=== PATIENT | male | born 1955 | race Caucasian/White ===

== ENCOUNTER 2018-11-19 05:36 | Inpatient (IN) ==
[2018-11-19] MEDS ORDERED: ONDANSETRON 4 MG/2 ML VIAL ONE ×2 (05:52→06:05)
[2018-11-19] MEDS ORDERED: MORPHINE 4 MG/1 ML VIAL ONE (05:53)
[2018-11-19] MEDS ORDERED: ENOXAPARIN 120 MG/0.8 ML SYRINGE SUBCUT ONE (05:55)
[2018-11-19] MEDS ORDERED: NITROGLYCERIN 2% OINT 1 INCH/GM PACK TOP ONE (05:56)
[2018-11-19] MEDS ORDERED: ENOXAPARIN 100 MG/ML SYRINGE SUBCUT STA (06:03)
[2018-11-19] MEDS ORDERED: MORPHINE 4 MG/1 ML VIAL IV STA (06:03)
[2018-11-19] MEDS ORDERED: NITROGLYCERIN 2% OINT 1 INCH/GM PACK TOP STA (06:03)
[2018-11-19] MEDS ORDERED: ONDANSETRON 4 MG/2 ML VIAL IV STA (06:03)
[2018-11-19] MEDS ORDERED: ASPIRIN 325 MG TABLET PO STA (06:03)
[2018-11-19 06:23] LABS: Basophils # 0.1 10*3/uL (0.0-0.2); Basophils % 0.4 % (0.0-0.8); Eosinophils # 0.1 10*3/uL (0.0-0.87); Eosinophils % 0.5 % (0.00-10.9); Hematocrit 51.5 VOL% (42.0-52.0); Hemoglobin 17.3 GM/DL (14.0-18.0); Immature Granulocytes % 0.5 %; Immature Granulocytes Absolute 0.06 #; Lymphocytes # 1.8 10*3/uL (1.4-4.0); Lymphocytes % 14.1 % (21.2-54.2); Mean Corpuscular HGB Conc 33.6 GM/DL (32-36); Mean Corpuscular Volume 89.4 FL (87-102); Monocytes % 7.5 % (1.7-12.7); Platelet Count 218 T/CUMM (130-400); Red Blood Count 5.76 MC/CUMM (3.8-5.5); Red Cell Distribution Width 12.8 % (9.3-17.3); White Blood Count 12.7 T/CUMM (4-12)
[2018-11-19 06:25] LABS: PT Patient Result 10.8 SECS
[2018-11-19 06:35] LABS: Albumin 3.4 G/DL (3.4-5.0); Bilirubin,Total 0.7 MG/DL (0.2-1.0); Calcium 8.8 MG/DL (8.5-10.1); Osmolality,Calculated 285.7 MOS/KG (273-304); Total Protein 7.6 G/DL (6.4-8.3)
[2018-11-19] MEDS ORDERED: VERAPAMIL 5 MG/2 ML VIAL ONE ×2 (06:38→06:52)
[2018-11-19] MEDS ORDERED: NITROGLYCERIN DRIP 50 MG/250 ML BOTTLE IV ONE (06:38)
[2018-11-19] MEDS ORDERED: HYDROmorphone 2 MG/1 ML VIAL ONE (06:50)
[2018-11-19] MEDS ORDERED: MIDAZOLAM 2 MG/2 ML VIAL ONE ×2 (06:50→07:28)
[2018-11-19] MEDS ORDERED: NITROGLYCERIN SL 0.4 MG TABLET SL PRN (08:12)
[2018-11-19] MEDS ORDERED: CLOPIDOGREL 300 MG TABLET ONE (08:29)
[2018-11-19] MEDS ORDERED: LOPERAMIDE 2 MG CAPSULE PO PRN (11:23)
[2018-11-19] MEDS ORDERED: SODIUM PHOSPHATE ENEMA 133 ML BOTTLE RECTAL PRN (11:23)
[2018-11-19] MEDS ORDERED: ACETAMINOPHEN 500 MG TABLET PO PRN (11:23)
[2018-11-19] MEDS ORDERED: MAGNESIUM HYDROXIDE SUSP 30 ML UDCUP PO PRN (11:23)
[2018-11-19] MEDS ORDERED: hydrALAZINE 20 MG/1 ML VIAL IV PRN (11:28)
[2018-11-19] MEDS ORDERED: METOPROLOL SUCCINATE XL 25 MG TABLET PO SCH (11:30)
[2018-11-19] MEDS ORDERED: ERGOCALCIFEROL 50,000 UNIT CAPSULE PO SCH (11:30)
[2018-11-19] MEDS ORDERED: FUROSEMIDE 40 MG/4 ML VIAL IV ONE (11:34)
[2018-11-19] MEDS: INSULIN LISPRO 100 UNIT/ML SUBCUT SCH ×3 (12:15→20:56)
[2018-11-19 12:30] LABS: Risk Ratio 3.02; VLDL CHOLESTEROL 43.6 MG/DL
[2018-11-19] MEDS ORDERED: MORPHINE 4 MG/1 ML VIAL IV PRN (14:00)
[2018-11-19] MEDS ORDERED: fentaNYL 50 MCG/HR PATCH TRANSDERM SCH (14:19)
[2018-11-19] MEDS: NICOTINE 14 MG/24 HR PATCH TRANSDERM SCH (14:35)
[2018-11-19] MEDS: PREGABALIN 100 MG CAPSULE PO SCH ×2 (14:35→20:57)
[2018-11-19] MEDS: fentaNYL 50 MCG/HR PATCH TRANSDERM SCH (14:35)
[2018-11-19] MEDS: SPIRONOLACTONE 25 MG TABLET PO SCH (18:25)
[2018-11-19] MEDS: ENOXAPARIN 120 MG/0.8 ML SYRINGE SUBCUT SCH (18:25)
[2018-11-19] MEDS: INSULIN GLARGINE 100 UNIT/ML SUBCUT SCH (20:56)
[2018-11-19] MEDS: DOCUSATE SODIUM 100 MG CAPSULE PO SCH (20:56)
[2018-11-19] MEDS: LACTULOSE 20 GM/30 ML UDCUP PO SCH (20:56)
[2018-11-19] MEDS: PANTOPRAZOLE 20 MG TABLET PO SCH (20:57)
[2018-11-19] MEDS: ATORVASTATIN 10 MG TABLET PO SCH (20:57)
[2018-11-19] MEDS ORDERED: LOSARTAN 25 MG TABLET PO SCH (21:00)
[2018-11-20 05:59] LABS: Basophils # 0.1 10*3/uL (0.0-0.2); Basophils % 0.4 % (0.0-0.8); Eosinophils # 0.1 10*3/uL (0.0-0.87); Eosinophils % 0.5 % (0.00-10.9); Hematocrit 48.6 VOL% (42.0-52.0); Immature Granulocytes % 0.4 %; Immature Granulocytes Absolute 0.05 #; Lymphocytes % 16.9 % (21.2-54.2); Mean Corpuscular HGB Conc 32.9 GM/DL (32-36); Mean Corpuscular Volume 90.2 FL (87-102); Mean Platelet Volume 12.2 FL (9.6-12.0); Monocytes % 10.9 % (1.7-12.7); Neutrophils % 70.9 % (38.7-73.9); Platelet Count 198 T/CUMM (130-400); Red Blood Count 5.39 MC/CUMM (3.8-5.5); Red Cell Distribution Width 12.8 % (9.3-17.3); White Blood Count 11.9 T/CUMM (4-12)
[2018-11-20 06:15] LABS: Calcium 8.4 MG/DL (8.5-10.1); Osmolality,Calculated 277.5 MOS/KG (273-304)
[2018-11-20] MEDS: ENOXAPARIN 120 MG/0.8 ML SYRINGE SUBCUT SCH (06:39)
[2018-11-20] MEDS ORDERED: FUROSEMIDE 40 MG/4 ML VIAL IV ONE (08:25)
[2018-11-20] MEDS: INSULIN LISPRO 100 UNIT/ML SUBCUT SCH ×5 (08:27→22:26)
[2018-11-20] MEDS ORDERED: amLODIPine 10 MG TABLET PO SCH (09:00)
[2018-11-20] MEDS: NICOTINE 14 MG/24 HR PATCH TRANSDERM SCH (09:28)
[2018-11-20] MEDS: POLYETHYLENE GLYCOL POWDER 17 GM PACK PO SCH (09:28)
[2018-11-20] MEDS: DOCUSATE SODIUM 100 MG CAPSULE PO SCH ×2 (09:30→22:27)
[2018-11-20] MEDS: PREGABALIN 100 MG CAPSULE PO SCH ×3 (09:30→22:28)
[2018-11-20] MEDS: ASPIRIN EC 81 MG TABLET PO SCH (09:32)
[2018-11-20] MEDS: ARIPiprazole 5 MG TABLET PO SCH (09:32)
[2018-11-20] MEDS: SPIRONOLACTONE 25 MG TABLET PO SCH (09:32)
[2018-11-20] MEDS: VENLAFAXINE XR 75 MG CAPSULE PO SCH (09:32)
[2018-11-20] MEDS: TAMSULOSIN 0.4 MG CAPSULE PO SCH (09:32)
[2018-11-20] MEDS: CLOPIDOGREL 75 MG TABLET PO SCH (09:32)
[2018-11-20] MEDS: POTASSIUM CHLORIDE 20 MEQ TABLET PO PRN ×3 (09:32→13:25)
[2018-11-20] MEDS: PANTOPRAZOLE 20 MG TABLET PO SCH ×2 (09:33→22:28)
[2018-11-20] MEDS ORDERED: DEXTROSE 50% 25 GM/50 ML SYRINGE IV PRN (10:18)
[2018-11-20] MEDS ORDERED: GLUCAGON 1 MG VIAL IM PRN (10:18)
[2018-11-20 10:59] LABS: CKMB % 6.4 %
[2018-11-20 11:01] LABS: Troponin I 32.3 NG/ML (0.00-0.045)
[2018-11-20 11:09] LABS: Apearance,Urine CLOUDY (Clear); Bacteria,Urine Many /HPF (Few); Bilirubin,Urine Negative (Negative); Blood, Urine Moderate mg/dL (Negative); Glucose,Urine (UA) >=500 mg/dL (Negative); Hyaline Casts,Urine 7 /LPF (0-3); Ketones,Urine Negative (Negative); Mucus,Urine Occasional /LPF (Occasional); Nitrite,Urine Negative (Negative); Protein,Urine 30 MG/DL; RBC,Urine 87 /HPF (0-4); Urine Color Yellow (Yellow); Urine Specific Gravity 1.015 (1.001-1.035); Urine Urobilinogen < 2.0 EU/DL (0.2-1.0); WBC,Urine 1459 /HPF (0-6)
[2018-11-20] MEDS: MULTIVITAMIN (CENTRUM) TABLET PO SCH (11:10)
[2018-11-20] MEDS: MICONAZOLE 2% CREAM 57 GM TUBE TOP SCH ×2 (11:10→22:29)
[2018-11-20] MEDS: POLYVINYL ALCOHOL 1.4% OPH SOLN 15 ML BOTTLE BOTH EYES SCH (11:10)
[2018-11-20] MEDS ORDERED: METOPROLOL SUCCINATE XL 25 MG TABLET PO SCH (13:27)
[2018-11-20] MEDS: INSULIN GLARGINE 100 UNIT/ML SUBCUT SCH (22:26)
[2018-11-20] MEDS: LACTULOSE 20 GM/30 ML UDCUP PO SCH (22:27)
[2018-11-20] MEDS: SULFAMETHOX/TRIMETHOPRIM 800-160 MG TABLET PO SCH (22:28)
[2018-11-20] MEDS: ATORVASTATIN 10 MG TABLET PO SCH (22:29)
[2018-11-20] MEDS: METOPROLOL SUCCINATE XL 25 MG TABLET PO SCH (22:31)
[2018-11-21 04:39] LABS: Basophils % 0.3 % (0.0-0.8); Eosinophils # 0.1 10*3/uL (0.0-0.87); Eosinophils % 0.6 % (0.00-10.9); Hematocrit 46.5 VOL% (42.0-52.0); Hemoglobin 15.4 GM/DL (14.0-18.0); Immature Granulocytes % 0.5 %; Immature Granulocytes Absolute 0.06 #; Lymphocytes # 2.5 10*3/uL (1.4-4.0); Lymphocytes % 20.6 % (21.2-54.2); Mean Corpuscular HGB Conc 33.1 GM/DL (32-36); Mean Corpuscular Volume 90.6 FL (87-102); Monocytes % 10.2 % (1.7-12.7); Neutrophils % 67.8 % (38.7-73.9); Platelet Count 194 T/CUMM (130-400); Red Blood Count 5.13 MC/CUMM (3.8-5.5); Red Cell Distribution Width 12.6 % (9.3-17.3)
[2018-11-21 04:48] LABS: Calcium 8.7 MG/DL (8.5-10.1); Osmolality,Calculated 282.2 MOS/KG (273-304)
[2018-11-21] MEDS: VENLAFAXINE XR 75 MG CAPSULE PO SCH (08:50)
[2018-11-21] MEDS: POLYETHYLENE GLYCOL POWDER 17 GM PACK PO SCH (08:50)
[2018-11-21] MEDS: METOPROLOL SUCCINATE XL 25 MG TABLET PO SCH ×2 (08:51→22:31)
[2018-11-21] MEDS: SULFAMETHOX/TRIMETHOPRIM 800-160 MG TABLET PO SCH ×2 (08:51→22:25)
[2018-11-21] MEDS: PREGABALIN 100 MG CAPSULE PO SCH ×3 (08:52→22:31)
[2018-11-21] MEDS: ARIPiprazole 5 MG TABLET PO SCH (08:52)
[2018-11-21] MEDS: MULTIVITAMIN (CENTRUM) TABLET PO SCH (08:52)
[2018-11-21] MEDS: ASPIRIN EC 81 MG TABLET PO SCH (08:53)
[2018-11-21] MEDS: DOCUSATE SODIUM 100 MG CAPSULE PO SCH ×2 (08:53→22:27)
[2018-11-21] MEDS: TAMSULOSIN 0.4 MG CAPSULE PO SCH (08:53)
[2018-11-21] MEDS: MICONAZOLE 2% CREAM 57 GM TUBE TOP SCH ×2 (08:53→22:26)
[2018-11-21] MEDS: CLOPIDOGREL 75 MG TABLET PO SCH (08:53)
[2018-11-21] MEDS: PANTOPRAZOLE 20 MG TABLET PO SCH ×2 (08:53→22:31)
[2018-11-21] MEDS: SPIRONOLACTONE 25 MG TABLET PO SCH (08:53)
[2018-11-21] MEDS: INSULIN LISPRO 100 UNIT/ML SUBCUT SCH ×4 (08:54→22:27)
[2018-11-21] MEDS: NICOTINE 14 MG/24 HR PATCH TRANSDERM SCH (08:54)
[2018-11-21] MEDS: POLYVINYL ALCOHOL 1.4% OPH SOLN 15 ML BOTTLE BOTH EYES SCH (08:54)
[2018-11-21] MEDS ORDERED: LOSARTAN 25 MG TABLET PO SCH (09:00)
[2018-11-21] MEDS ORDERED: LORATADINE 10 MG TABLET PO PRN (14:49)
[2018-11-21] MEDS ORDERED: LACTULOSE 20 GM/30 ML UDCUP PO PRN (14:49)
[2018-11-21] MEDS ORDERED: ATORVASTATIN 80 MG TABLET PO SCH (21:00)
[2018-11-21] MEDS: LOSARTAN 25 MG TABLET PO SCH (22:25)
[2018-11-21] MEDS: LACTULOSE 20 GM/30 ML UDCUP PO SCH (22:26)
[2018-11-21] MEDS: INSULIN GLARGINE 100 UNIT/ML SUBCUT SCH (22:30)
[2018-11-21] MEDS: RIVAROXABAN 10 MG TABLET PO SCH (22:31)
[2018-11-22 05:01] LABS: Basophils # 0.1 10*3/uL (0.0-0.2); Basophils % 0.4 % (0.0-0.8); Eosinophils # 0.1 10*3/uL (0.0-0.87); Eosinophils % 0.9 % (0.00-10.9); Hemoglobin 15.5 GM/DL (14.0-18.0); Immature Granulocytes % 0.6 %; Immature Granulocytes Absolute 0.07 #; Lymphocytes % 17.4 % (21.2-54.2); Mean Platelet Volume 12.2 FL (9.6-12.0); Monocytes % 10.2 % (1.7-12.7); Neutrophils % 70.5 % (38.7-73.9); Platelet Count 209 T/CUMM (130-400); Red Blood Count 5.22 MC/CUMM (3.8-5.5); Red Cell Distribution Width 12.6 % (9.3-17.3); White Blood Count 11.7 T/CUMM (4-12)
[2018-11-22 05:42] LABS: Calcium 8.9 MG/DL (8.5-10.1); Osmolality,Calculated 272.4 MOS/KG (273-304)
[2018-11-22 08:14] VITALS: BP 146/67
[2018-11-22] MEDS ORDERED: fentaNYL 50 MCG/HR PATCH TRANSDERM SCH (09:00)
[2018-11-22] MEDS: NICOTINE 14 MG/24 HR PATCH TRANSDERM SCH (09:19)
[2018-11-22] MEDS: fentaNYL 50 MCG/HR PATCH TRANSDERM SCH (09:20)
[2018-11-22] MEDS: INSULIN LISPRO 100 UNIT/ML SUBCUT SCH ×2 (09:20→12:42)
[2018-11-22] MEDS: SULFAMETHOX/TRIMETHOPRIM 800-160 MG TABLET PO SCH (09:21)
[2018-11-22] MEDS: VENLAFAXINE XR 75 MG CAPSULE PO SCH (09:21)
[2018-11-22] MEDS: METOPROLOL SUCCINATE XL 25 MG TABLET PO SCH (09:22)
[2018-11-22] MEDS: LOSARTAN 25 MG TABLET PO SCH (09:22)
[2018-11-22] MEDS: DOCUSATE SODIUM 100 MG CAPSULE PO SCH (09:22)
[2018-11-22] MEDS: ARIPiprazole 5 MG TABLET PO SCH (09:22)
[2018-11-22] MEDS: MULTIVITAMIN (CENTRUM) TABLET PO SCH (09:22)
[2018-11-22] MEDS: PREGABALIN 100 MG CAPSULE PO SCH (09:23)
[2018-11-22] MEDS: TAMSULOSIN 0.4 MG CAPSULE PO SCH (09:23)
[2018-11-22] MEDS: ASPIRIN EC 81 MG TABLET PO SCH (09:23)
[2018-11-22] MEDS: CLOPIDOGREL 75 MG TABLET PO SCH (09:23)
[2018-11-22] MEDS: RIVAROXABAN 10 MG TABLET PO SCH (09:23)
[2018-11-22] MEDS: MICONAZOLE 2% CREAM 57 GM TUBE TOP SCH (09:24)
[2018-11-22] MEDS: PANTOPRAZOLE 20 MG TABLET PO SCH (09:24)
[2018-11-22] MEDS: SPIRONOLACTONE 25 MG TABLET PO SCH (09:24)
[2018-11-22] MEDS: POLYETHYLENE GLYCOL POWDER 17 GM PACK PO SCH (09:24)
[2018-11-22] MEDS: POLYVINYL ALCOHOL 1.4% OPH SOLN 15 ML BOTTLE BOTH EYES SCH (09:37)
== END 2018-11-22 12:05 | DRG 281 ==
LOC: EDBD → EDUNIT# → N.ED 05:36 → N.ICU 06:14 → N.EDINP 06:51 → N.ICU 08:42 → N.TELEN 11-20 11:28
PROVIDERS: ADMIT Internal Medicine Cardiovascular Disease; ATTEND Internal Medicine Cardiovascular Disease
PROC: CLCCHCL (ICD-10-PCS; 2018-11-19 06:15)

== ENCOUNTER 2022-07-07 23:34 | Inpatient (IN) ==
[2022-07-07] MEDS ORDERED: SODIUM CHLORIDE 0.9% 1,000 ML IV STA (23:57)
[2022-07-08 00:18] LABS: Albumin 3.5 G/DL (3.4-5.0); Bilirubin,Total 0.5 MG/DL (0.20-1.00); Calcium 8.9 MG/DL (8.5-10.1); Lactic Acid 1.6 MMOL/L (0.4-2.0); Osmolality,Calculated 274.1 MOS/KG (273-304); Potassium 5.7 MMOL/L (3.5-5.1); Total Protein 7.2 G/DL (6.4-8.2)
[2022-07-08] MEDS ORDERED: ETOMIDATE 20 MG/10 ML VIAL IV ONE (00:25)
[2022-07-08] MEDS ORDERED: ROCURONIUM 100 MG/10 ML VIAL IV ONE (00:25)
[2022-07-08 00:32] LABS: Basophils % 0.2 % (0.0-0.8); Eosinophils % 0.1 % (0.00-10.9); Hematocrit 55.1 VOL% (42.0-52.0); Hemoglobin 17.4 GM/DL (14.0-18.0); Immature Granulocytes % 1.6 %; Immature Granulocytes Absolute 0.16 #; Lymphocytes # 1.6 10*3/uL (1.4-4.0); Lymphocytes % 15.9 % (21.2-54.2); Mean Corpuscular HGB Conc 31.6 GM/DL (32-36); Mean Corpuscular Volume 97.9 FL (87-102); Mean Platelet Volume 12.2 FL (9.6-12.0); Monocytes # 1.4 10*3/uL (0.11-0.8); Monocytes % 13.6 % (1.7-12.7); Neutrophils % 68.6 % (38.7-73.9); Platelet Count 217 T/CUMM (130-400); Red Blood Count 5.63 MC/CUMM (3.8-5.5); Red Cell Distribution Width 14.6 % (9.3-17.3)
[2022-07-08 00:33] LABS: Amorphous Crystals,Urine Occasional /HPF (Few); Glucose,Urine (UA) Negative (Negative); Granular Casts,Urine 29 /LPF (0-1); Hyaline Casts,Urine 10 /LPF (0-3); Mucus,Urine Occasional /LPF (Occasional); Protein,Urine 100 mg/dL (Negative); RBC,Urine 7 /HPF (0-4); Squamous Epithelial Cell,Urine Occasional /HPF (0-10); Urine Appearance Clear (Clear); Urine Color Yellow (Yellow); Urine Specific Gravity >= 1.030 (1.001-1.035); Urine pH 5.5 (4.5-8.0)
[2022-07-08 00:34] LABS: Bilirubin,Urine Small mg/dL (Negative); Blood, Urine Negative (Negative); Ketones,Urine Negative (Negative); Nitrite,Urine Negative (Negative); Urine Urobilinogen 0.2 eU/dL (<2.0)
[2022-07-08] MEDS ORDERED: NOREPINEPHRINE 4 MG/4 ML VIAL IV ONE (00:37)
[2022-07-08 00:40] LABS: Barbiturates Screen,Urine Negative (Negative); Benzodiazepines Screen,Urine Negative (Negative); Cannabinoid Screen,Urine Negative (Negative); Opiate Screen,Urine Negative (Negative); Phencyclidine Screen,Urine Negative (Negative)
[2022-07-08 00:44] LABS: INR 1.3; PT Patient Result 13.8 SECS (10.1-12.1)
[2022-07-08] MEDS ORDERED: SODIUM CHLORIDE 0.9% 1,000 ML IV STA (00:47)
[2022-07-08] MEDS ORDERED: NOREPINEPHRINE 8 MG in SODIUM CHLORIDE 0.9% 242 ML IV PRN (00:49)
[2022-07-08] MEDS ORDERED: VANCOMYCIN INJ 1,000 MG in SODIUM CHLORIDE 0.9% 250 ML IV STA (00:50)
[2022-07-08] MEDS ORDERED: PIPERACILLIN/TAZOBACTAM 3,375 MG in SODIUM CHLORIDE 0.9% 100 ML IV STA (00:50)
[2022-07-08 00:57] LABS: Arterial Base Excess iSTAT 1 MMOL/L (-2.5-2.5); Arterial Bicarbonate iSTAT 29.3 MMOL/L (20-26); Arterial O2 Saturation iSTAT 99 % (95-100); Arterial PCO2 iSTAT 57 MM HG (35-48); Arterial PO2 iSTAT 150 MM HG (80-95); Arterial Total CO2 iSTAT 31 MMO/L (23-27)
[2022-07-08] MEDS ORDERED: DEXTROSE 50% 25 GM/50 ML VIAL IV STA ×2 (01:03→06:31)
[2022-07-08] MEDS ORDERED: INSULIN REGULAR 100 UNIT/ML IV STA (01:03)
[2022-07-08] MEDS ORDERED: ALBUTEROL 2.5 MG/3 ML NEB RESP TX PRN (02:47)
[2022-07-08] MEDS ORDERED: ONDANSETRON 4 MG/2 ML VIAL IV PRN (02:47)
[2022-07-08] MEDS ORDERED: VANCOMYCIN INJ 1,750 MG in SODIUM CHLORIDE 0.9% 250 ML IV SCH (03:00)
[2022-07-08] MEDS ORDERED: GLUCAGON 1 MG VIAL IM PRN (03:01)
[2022-07-08] MEDS ORDERED: DEXTROSE 50% 25 GM/50 ML VIAL IV PRN (03:01)
[2022-07-08] MEDS ORDERED: MIDAZOLAM 10 MG/2 ML VIAL ONE (03:02)
[2022-07-08] MEDS ORDERED: MIDAZOLAM 10 MG/2 ML VIAL IV STA (03:03)
[2022-07-08] MEDS ORDERED: DEXTROSE 50% 25 GM/50 ML SYRINGE IV ONE ×2 (03:31→06:17)
[2022-07-08] MEDS: PANTOPRAZOLE 40 MG VIAL IV SCH (03:35)
[2022-07-08] MEDS ORDERED: VANCOMYCIN INJ 1,750 MG in SODIUM CHLORIDE 0.9% 500 ML IV SCH (04:00)
[2022-07-08] MEDS: SODIUM CHLORIDE 0.9% 1,000 ML IV SCH ×2 (04:30→10:03)
[2022-07-08] MEDS: NOREPINEPHRINE DRIP 8 MG/250 ML PREMIX IV PRN ×2 (04:36→17:08)
[2022-07-08 04:39] LABS: Arterial Base Excess iSTAT 0 MMOL/L (-2.5-2.5); Arterial Bicarbonate iSTAT 27.8 MMOL/L (20-26); Arterial O2 Saturation iSTAT 97 % (95-100); Arterial PCO2 iSTAT 55 MM HG (35-48); Arterial PO2 iSTAT 96 MM HG (80-95); Arterial Total CO2 iSTAT 29 MMO/L (23-27)
[2022-07-08] MEDS: MIDAZOLAM DRIP 100 MG/100 ML PREMIX IV PRN ×2 (04:41→17:08)
[2022-07-08] MEDS: INSULIN LISPRO 100 UNIT/ML SUBCUT SCH ×3 (05:35→17:54)
[2022-07-08] MEDS ORDERED: DEXTROSE 50% 25 GM/50 ML SYRINGE IV STA (06:32)
[2022-07-08] MEDS: ALBUTEROL/IPRATROPIUM 3 ML NEB RESP TX SCH ×3 (07:59→19:23)
[2022-07-08] MEDS: PIPERACILLIN/TAZOBACTAM 3,375 MG in SODIUM CHLORIDE 0.9% 100 ML IV SCH ×2 (09:28→16:03)
[2022-07-08] MEDS: DEXTROSE 10% 250 ML BAG IV PRN (14:56)
[2022-07-08] MEDS: DEXTROSE 5% NACL 0.45% 1,000 ML IV SCH ×2 (15:27→23:30)
[2022-07-08 16:36] LABS: Calcium 7.8 MG/DL (8.5-10.1); Osmolality,Calculated 281.4 MOS/KG (273-304); Potassium 4.1 MMOL/L (3.5-5.1)
[2022-07-08] MEDS ORDERED: SODIUM CHLORIDE 0.9% 500 ML IV ONE (18:09)
[2022-07-08] MEDS ORDERED: ENOXAPARIN 40 MG/0.4 ML SYRINGE SUBCUT SCH (21:00)
[2022-07-09] MEDS: INSULIN LISPRO 100 UNIT/ML SUBCUT SCH ×4 (00:12→18:03)
[2022-07-09] MEDS: PIPERACILLIN/TAZOBACTAM 3,375 MG in SODIUM CHLORIDE 0.9% 100 ML IV SCH ×3 (00:27→16:49)
[2022-07-09] MEDS: ALBUTEROL/IPRATROPIUM 3 ML NEB RESP TX SCH ×4 (01:07→19:21)
[2022-07-09] MEDS: PANTOPRAZOLE 40 MG VIAL IV SCH (02:45)
[2022-07-09 03:15] LABS: Arterial Base Excess iSTAT 2 MMOL/L (-2.5-2.5); Arterial Bicarbonate iSTAT 27.9 MMOL/L (20-26); Arterial O2 Saturation iSTAT 97 % (95-100); Arterial PCO2 iSTAT 45 MM HG (35-48); Arterial PO2 iSTAT 90 MM HG (80-95); Arterial Total CO2 iSTAT 29 MMO/L (23-27); Arterial pH iSTAT 7.397 (7.35-7.45)
[2022-07-09] MEDS: NOREPINEPHRINE DRIP 8 MG/250 ML PREMIX IV PRN ×3 (05:02→20:56)
[2022-07-09 05:21] LABS: Basophils % 0.2 % (0.0-0.8); Eosinophils % 0.1 % (0.00-10.9); Hematocrit 51.5 VOL% (42.0-52.0); Hemoglobin 17.2 GM/DL (14.0-18.0); Immature Granulocytes % 0.4 %; Immature Granulocytes Absolute 0.05 #; Lymphocytes # 1.2 10*3/uL (1.4-4.0); Lymphocytes % 9.1 % (21.2-54.2); Mean Corpuscular HGB Conc 33.4 GM/DL (32-36); Mean Corpuscular Volume 93.6 FL (87-102); Mean Platelet Volume 11.7 FL (9.6-12.0); Monocytes # 1.9 10*3/uL (0.11-0.8); Neutrophils % 75.2 % (38.7-73.9); Platelet Count 184 T/CUMM (130-400); Red Cell Distribution Width 14.6 % (9.3-17.3); White Blood Count 12.9 T/CUMM (4-12)
[2022-07-09 05:39] LABS: Albumin 2.6 G/DL (3.4-5.0); Bilirubin,Total 0.6 MG/DL (0.20-1.00); Calcium 8.3 MG/DL (8.5-10.1); Osmolality,Calculated 279.2 MOS/KG (273-304); Potassium 4.1 MMOL/L (3.5-5.1); Total Protein 6.4 G/DL (6.4-8.2)
[2022-07-09] MEDS: DEXTROSE 5% NACL 0.45% 1,000 ML IV SCH ×2 (07:30→16:04)
[2022-07-09] MEDS: MIDAZOLAM DRIP 100 MG/100 ML PREMIX IV PRN ×2 (08:30→20:28)
[2022-07-09] MEDS: APIXABAN 5 MG TABLET PO SCH ×2 (14:16→21:05)
[2022-07-09] MEDS: ARIPiprazole 5 MG TABLET PO SCH (16:50)
[2022-07-09] MEDS: fentaNYL 25 MCG/HR PATCH TRANSDERM SCH (16:50)
[2022-07-09] MEDS: CLOPIDOGREL 75 MG TABLET PO SCH (16:50)
[2022-07-09] MEDS: guaiFENesin 200 MG/10 ML UDCUP PO SCH (18:03)
[2022-07-09] MEDS ORDERED: OMEGA 3 ACID ETHYL ESTERS 1 GM CAPSULE PO SCH (21:00)
[2022-07-09] MEDS: PREGABALIN 100 MG CAPSULE PO SCH (21:06)
[2022-07-09] MEDS: GABAPENTIN 400 MG CAPSULE PO SCH (21:06)
[2022-07-09] MEDS: VENLAFAXINE 37.5 MG TABLET PO SCH (21:06)
[2022-07-09] MEDS: busPIRone 10 MG TABLET PO SCH (21:06)
[2022-07-10] MEDS: ALBUTEROL/IPRATROPIUM 3 ML NEB RESP TX SCH ×4 (00:07→19:25)
[2022-07-10] MEDS: guaiFENesin 200 MG/10 ML UDCUP PO SCH ×4 (00:41→17:24)
[2022-07-10] MEDS: PIPERACILLIN/TAZOBACTAM 3,375 MG in SODIUM CHLORIDE 0.9% 100 ML IV SCH ×2 (00:42→09:45)
[2022-07-10] MEDS: INSULIN LISPRO 100 UNIT/ML SUBCUT SCH ×4 (00:42→17:24)
[2022-07-10] MEDS: NOREPINEPHRINE DRIP 8 MG/250 ML PREMIX IV PRN ×4 (02:30→18:55)
[2022-07-10 03:54] LABS: ABG Base Excess 3.4 MMOL/L (-2.5-2.5); ABG HCO3 27.4 MMOL/L (20-26); ABG PCO2 62.1 MM HG (35-48); ABG PH 7.325 (7.35-7.45); ABG PO2 99.4 MM HG (80-95); ABG TCO2 26.9 MMOL/L (23-27)
[2022-07-10 03:55] LABS: Basophils % 0.3 % (0.0-0.8); Eosinophils % 0.2 % (0.00-10.9); Hematocrit 53.9 VOL% (42.0-52.0); Hemoglobin 17.5 GM/DL (14.0-18.0); Immature Granulocytes % 0.4 %; Immature Granulocytes Absolute 0.06 #; Lymphocytes # 1.2 10*3/uL (1.4-4.0); Lymphocytes % 7.3 % (21.2-54.2); Mean Corpuscular HGB Conc 32.5 GM/DL (32-36); Mean Corpuscular Volume 94.6 FL (87-102); Mean Platelet Volume 11.6 FL (9.6-12.0); Monocytes # 2.1 10*3/uL (0.11-0.8); Monocytes % 13.2 % (1.7-12.7); Neutrophils % 78.6 % (38.7-73.9); Platelet Count 168 T/CUMM (130-400); Red Cell Distribution Width 14.6 % (9.3-17.3); White Blood Count 15.9 T/CUMM (4-12)
[2022-07-10] MEDS: PANTOPRAZOLE 40 MG VIAL IV SCH (04:04)
[2022-07-10 04:16] LABS: Albumin 2.5 G/DL (3.4-5.0); Bilirubin,Total 0.7 MG/DL (0.20-1.00); Calcium 8.4 MG/DL (8.5-10.1); Osmolality,Calculated 289.3 MOS/KG (273-304); Potassium 4.1 MMOL/L (3.5-5.1); Total Protein 5.8 G/DL (6.4-8.2)
[2022-07-10] MEDS: MIDAZOLAM DRIP 100 MG/100 ML PREMIX IV PRN (08:38)
[2022-07-10] MEDS ORDERED: CHOLECALCIFEROL 1,000 UNIT TABLET PO SCH (09:00)
[2022-07-10] MEDS: CETIRIZINE 10 MG TABLET PO SCH (09:43)
[2022-07-10] MEDS: MULTIVITAMIN LIQUID (CENTRUM) 60 ML BOTTLE PO SCH (09:43)
[2022-07-10] MEDS: POLYETHYLENE GLYCOL POWDER 17 GM PACK PO SCH (09:43)
[2022-07-10] MEDS: ARIPiprazole 5 MG TABLET PO SCH (09:44)
[2022-07-10] MEDS: APIXABAN 5 MG TABLET PO SCH ×2 (09:44→20:47)
[2022-07-10] MEDS: busPIRone 10 MG TABLET PO SCH ×2 (09:44→20:47)
[2022-07-10] MEDS: VENLAFAXINE 37.5 MG TABLET PO SCH ×2 (09:44→20:47)
[2022-07-10] MEDS: CLOPIDOGREL 75 MG TABLET PO SCH (09:44)
[2022-07-10] MEDS: ASPIRIN CHEW 81 MG TABLET PO SCH (09:44)
[2022-07-10] MEDS: PREGABALIN 100 MG CAPSULE PO SCH ×3 (09:44→20:47)
[2022-07-10] MEDS: GABAPENTIN 400 MG CAPSULE PO SCH ×2 (09:44→20:47)
[2022-07-10] MEDS: LEVOFLOXACIN 750 MG TABLET PER TUBE SCH (15:21)
[2022-07-10] MEDS: cefTRIAXone 2,000 MG in SODIUM CHLORIDE 0.9% 100 ML IV SCH (15:38)
[2022-07-11] MEDS: ALBUTEROL/IPRATROPIUM 3 ML NEB RESP TX SCH ×4 (00:01→19:00)
[2022-07-11] MEDS: NOREPINEPHRINE DRIP 8 MG/250 ML PREMIX IV PRN ×6 (00:25→23:56)
[2022-07-11] MEDS: INSULIN LISPRO 100 UNIT/ML SUBCUT SCH ×5 (00:25→23:40)
[2022-07-11] MEDS: guaiFENesin 200 MG/10 ML UDCUP PO SCH ×5 (00:26→23:40)
[2022-07-11] MEDS: PANTOPRAZOLE 40 MG VIAL IV SCH (03:21)
[2022-07-11 03:45] LABS: ABG Base Excess 5.3 MMOL/L (-2.5-2.5); ABG Oxygen Saturation 94.5 % (95-100); ABG PCO2 61.3 MM HG (35-48); ABG PH 7.351 (7.35-7.45); ABG PO2 73.8 MM HG (80-95); ABG TCO2 28.2 MMOL/L (23-27)
[2022-07-11 03:49] LABS: Basophils % 0.3 % (0.0-0.8); Eosinophils # 0.4 10*3/uL (0.0-0.87); Eosinophils % 2.7 % (0.00-10.9); Hematocrit 53.7 VOL% (42.0-52.0); Hemoglobin 17.1 GM/DL (14.0-18.0); Immature Granulocytes % 0.4 %; Immature Granulocytes Absolute 0.05 #; Lymphocytes % 7.3 % (21.2-54.2); Mean Corpuscular HGB Conc 31.8 GM/DL (32-36); Mean Corpuscular Volume 95.9 FL (87-102); Mean Platelet Volume 11.3 FL (9.6-12.0); Monocytes % 14.2 % (1.7-12.7); Neutrophils % 75.1 % (38.7-73.9); Platelet Count 142 T/CUMM (130-400); Red Cell Distribution Width 14.3 % (9.3-17.3); White Blood Count 13.8 T/CUMM (4-12)
[2022-07-11 04:05] LABS: Albumin 2.2 G/DL (3.4-5.0); Bilirubin,Total 0.4 MG/DL (0.20-1.00); Calcium 8.6 MG/DL (8.5-10.1); Potassium 4.8 MMOL/L (3.5-5.1); Total Protein 6.4 G/DL (6.4-8.2)
[2022-07-11 04:09] LABS: Eosinophils 3 % (0-10); Lymphocytes 10 % (20-55); Total Cells Counted 100
[2022-07-11] MEDS: DORNASE ALFA 2.5 MG/2.5 ML VIAL RESP TX SCH ×2 (09:15→19:10)
[2022-07-11] MEDS: POLYETHYLENE GLYCOL POWDER 17 GM PACK PO SCH (09:31)
[2022-07-11] MEDS: INSULIN GLARGINE 100 UNIT/ML SUBCUT SCH (09:32)
[2022-07-11] MEDS: ARIPiprazole 5 MG TABLET PO SCH (09:32)
[2022-07-11] MEDS: PREGABALIN 100 MG CAPSULE PO SCH ×3 (09:33→20:49)
[2022-07-11] MEDS: ASPIRIN CHEW 81 MG TABLET PO SCH (09:33)
[2022-07-11] MEDS: CETIRIZINE 10 MG TABLET PO SCH (09:33)
[2022-07-11] MEDS: busPIRone 10 MG TABLET PO SCH ×2 (09:33→20:49)
[2022-07-11] MEDS: CLOPIDOGREL 75 MG TABLET PO SCH (09:33)
[2022-07-11] MEDS: VENLAFAXINE 37.5 MG TABLET PO SCH ×2 (09:33→20:49)
[2022-07-11] MEDS: APIXABAN 5 MG TABLET PO SCH ×2 (09:33→20:49)
[2022-07-11] MEDS: GABAPENTIN 400 MG CAPSULE PO SCH ×2 (09:33→20:48)
[2022-07-11] MEDS: MULTIVITAMIN LIQUID (CENTRUM) 60 ML BOTTLE PO SCH (09:39)
[2022-07-11] MEDS: LEVOFLOXACIN 750 MG TABLET PER TUBE SCH (15:05)
[2022-07-11] MEDS: cefTRIAXone 2,000 MG in SODIUM CHLORIDE 0.9% 100 ML IV SCH (16:20)
[2022-07-11] MEDS: ACETAMINOPHEN 325 MG TABLET PO PRN (20:49)
[2022-07-12 03:38] LABS: Basophils % 0.3 % (0.0-0.8); Eosinophils # 0.4 10*3/uL (0.0-0.87); Eosinophils % 3.5 % (0.00-10.9); Hematocrit 52.4 VOL% (42.0-52.0); Hemoglobin 16.2 GM/DL (14.0-18.0); Immature Granulocytes % 0.3 %; Immature Granulocytes Absolute 0.04 #; Lymphocytes # 1.2 10*3/uL (1.4-4.0); Lymphocytes % 10.2 % (21.2-54.2); Mean Corpuscular HGB Conc 30.9 GM/DL (32-36); Mean Corpuscular Volume 97.6 FL (87-102); Mean Platelet Volume 11.7 FL (9.6-12.0); Monocytes # 1.9 10*3/uL (0.11-0.8); Monocytes % 16.1 % (1.7-12.7); Neutrophils % 69.6 % (38.7-73.9); Platelet Count 161 T/CUMM (130-400); Red Blood Count 5.37 MC/CUMM (3.8-5.5); Red Cell Distribution Width 14.1 % (9.3-17.3)
[2022-07-12] MEDS: PANTOPRAZOLE 40 MG VIAL IV SCH (03:39)
[2022-07-12 03:48] LABS: Calcium 8.3 MG/DL (8.5-10.1); Osmolality,Calculated 283.2 MOS/KG (273-304); Potassium 4.7 MMOL/L (3.5-5.1)
[2022-07-12 03:50] LABS: Arterial Base Excess iSTAT 6 MMOL/L (-2.5-2.5); Arterial Bicarbonate iSTAT 32.8 MMOL/L (20-26); Arterial O2 Saturation iSTAT 96 % (95-100); Arterial PCO2 iSTAT 52 MM HG (35-48); Arterial PO2 iSTAT 85 MM HG (80-95); Arterial Total CO2 iSTAT 34 MMO/L (23-27); Arterial pH iSTAT 7.408 (7.35-7.45)
[2022-07-12 03:59] LABS: Band Neutrophils 1 % (0-10); Eosinophils 3 % (0-10); Lymphocytes 10 % (20-55); Total Cells Counted 100
[2022-07-12 04:00] LABS: Platelet Estimate Adequate
[2022-07-12] MEDS: MIDAZOLAM DRIP 100 MG/100 ML PREMIX IV PRN (05:13)
[2022-07-12] MEDS: INSULIN LISPRO 100 UNIT/ML SUBCUT SCH ×4 (05:30→23:56)
[2022-07-12] MEDS: guaiFENesin 200 MG/10 ML UDCUP PO SCH ×4 (05:31→23:56)
[2022-07-12] MEDS: NOREPINEPHRINE DRIP 8 MG/250 ML PREMIX IV PRN ×4 (05:31→21:27)
[2022-07-12] MEDS: ALBUTEROL/IPRATROPIUM 3 ML NEB RESP TX SCH ×5 (07:37→23:55)
[2022-07-12] MEDS: DORNASE ALFA 2.5 MG/2.5 ML VIAL RESP TX SCH ×2 (07:50→19:50)
[2022-07-12] MEDS: APIXABAN 5 MG TABLET PO SCH ×2 (08:57→20:44)
[2022-07-12] MEDS: POLYETHYLENE GLYCOL POWDER 17 GM PACK PO SCH (08:57)
[2022-07-12] MEDS: GABAPENTIN 400 MG CAPSULE PO SCH ×2 (08:58→20:44)
[2022-07-12] MEDS: VENLAFAXINE 37.5 MG TABLET PO SCH ×2 (08:58→20:43)
[2022-07-12] MEDS: ASPIRIN CHEW 81 MG TABLET PO SCH (08:58)
[2022-07-12] MEDS: CETIRIZINE 10 MG TABLET PO SCH (08:58)
[2022-07-12] MEDS: CLOPIDOGREL 75 MG TABLET PO SCH (08:58)
[2022-07-12] MEDS: busPIRone 10 MG TABLET PO SCH ×2 (08:58→20:44)
[2022-07-12] MEDS: ARIPiprazole 5 MG TABLET PO SCH (08:58)
[2022-07-12] MEDS: PREGABALIN 100 MG CAPSULE PO SCH ×3 (08:58→20:44)
[2022-07-12] MEDS: INSULIN GLARGINE 100 UNIT/ML SUBCUT SCH (08:58)
[2022-07-12] MEDS: MULTIVITAMIN LIQUID (CENTRUM) 60 ML BOTTLE PO SCH (09:08)
[2022-07-12] MEDS ORDERED: INSULIN GLARGINE 100 UNIT/ML SUBCUT SCH ×2 (09:45→10:00)
[2022-07-12] MEDS ORDERED: SODIUM PHOSPHATE INJ 30 MMOL in SODIUM CHLORIDE 0.9% 250 ML IV ONE (10:00)
[2022-07-12] MEDS: LEVOFLOXACIN 750 MG TABLET PER TUBE SCH (14:56)
[2022-07-12] MEDS: fentaNYL 25 MCG/HR PATCH TRANSDERM SCH (14:57)
[2022-07-12] MEDS: cefTRIAXone 2,000 MG in SODIUM CHLORIDE 0.9% 100 ML IV SCH (16:15)
[2022-07-13] MEDS: PANTOPRAZOLE 40 MG VIAL IV SCH (02:32)
[2022-07-13] MEDS: NOREPINEPHRINE DRIP 8 MG/250 ML PREMIX IV PRN ×5 (02:45→23:54)
[2022-07-13 04:22] LABS: ABG HCO3 28.9 MMOL/L (20-26); ABG Oxygen Saturation 96.7 % (95-100); ABG PCO2 53.6 MM HG (35-48); ABG PH 7.385 (7.35-7.45); ABG TCO2 26.6 MMOL/L (23-27); Basophils % 0.3 % (0.0-0.8); Eosinophils # 0.3 10*3/uL (0.0-0.87); Eosinophils % 2.7 % (0.00-10.9); Hematocrit 52.5 VOL% (42.0-52.0); Hemoglobin 16.9 GM/DL (14.0-18.0); Immature Granulocytes % 0.4 %; Immature Granulocytes Absolute 0.05 #; Lymphocytes # 1.3 10*3/uL (1.4-4.0); Lymphocytes % 9.9 % (21.2-54.2); Mean Corpuscular HGB Conc 32.2 GM/DL (32-36); Mean Corpuscular Volume 95.8 FL (87-102); Mean Platelet Volume 11.8 FL (9.6-12.0); Monocytes # 1.8 10*3/uL (0.11-0.8); Monocytes % 13.9 % (1.7-12.7); Neutrophils % 72.8 % (38.7-73.9); Platelet Count 171 T/CUMM (130-400); Red Blood Count 5.48 MC/CUMM (3.8-5.5); White Blood Count 12.8 T/CUMM (4-12)
[2022-07-13 04:38] LABS: Calcium 8.6 MG/DL (8.5-10.1); Osmolality,Calculated 280.8 MOS/KG (273-304); Potassium 4.6 MMOL/L (3.5-5.1)
[2022-07-13 04:42] LABS: Eosinophils 2 % (0-10); Lymphocytes 10 % (20-55); Platelet Estimate Adequate; Total Cells Counted 100
[2022-07-13] MEDS: guaiFENesin 200 MG/10 ML UDCUP PO SCH ×4 (05:14→23:41)
[2022-07-13] MEDS: INSULIN LISPRO 100 UNIT/ML SUBCUT SCH ×4 (05:14→23:41)
[2022-07-13] MEDS: ALBUTEROL/IPRATROPIUM 3 ML NEB RESP TX SCH ×3 (07:28→19:33)
[2022-07-13] MEDS: DORNASE ALFA 2.5 MG/2.5 ML VIAL RESP TX SCH ×2 (07:28→19:33)
[2022-07-13] MEDS: MULTIVITAMIN LIQUID (CENTRUM) 60 ML BOTTLE PO SCH (08:21)
[2022-07-13] MEDS: busPIRone 10 MG TABLET PO SCH ×2 (08:25→20:51)
[2022-07-13] MEDS: POLYETHYLENE GLYCOL POWDER 17 GM PACK PO SCH (08:25)
[2022-07-13] MEDS: ARIPiprazole 5 MG TABLET PO SCH (08:25)
[2022-07-13] MEDS: VENLAFAXINE 37.5 MG TABLET PO SCH ×2 (08:25→20:51)
[2022-07-13] MEDS: GABAPENTIN 400 MG CAPSULE PO SCH ×2 (08:25→20:51)
[2022-07-13] MEDS: PREGABALIN 100 MG CAPSULE PO SCH ×3 (08:25→20:51)
[2022-07-13] MEDS: ACETAMINOPHEN 325 MG TABLET PO PRN (08:26)
[2022-07-13] MEDS: ASPIRIN CHEW 81 MG TABLET PO SCH (08:26)
[2022-07-13] MEDS: CLOPIDOGREL 75 MG TABLET PO SCH (08:26)
[2022-07-13] MEDS: CETIRIZINE 10 MG TABLET PO SCH (08:30)
[2022-07-13] MEDS ORDERED: INSULIN GLARGINE 100 UNIT/ML SUBCUT ONE (08:30)
[2022-07-13] MEDS: INSULIN GLARGINE 100 UNIT/ML SUBCUT SCH (08:30)
[2022-07-13] MEDS: APIXABAN 5 MG TABLET PO SCH ×2 (08:33→20:51)
[2022-07-13] MEDS: ZINC OXIDE PASTE 113 GM TUBE TOP PRN (08:37)
[2022-07-13] MEDS ORDERED: INSULIN GLARGINE 100 UNIT/ML SUBCUT SCH (09:00)
[2022-07-13] MEDS: LEVOFLOXACIN 750 MG TABLET PER TUBE SCH (15:35)
[2022-07-13] MEDS: cefTRIAXone 2,000 MG in SODIUM CHLORIDE 0.9% 100 ML IV SCH (16:59)
[2022-07-14] MEDS: ALBUTEROL/IPRATROPIUM 3 ML NEB RESP TX SCH ×4 (00:15→19:37)
[2022-07-14] MEDS: PANTOPRAZOLE 40 MG VIAL IV SCH (02:43)
[2022-07-14 04:23] LABS: ABG HCO3 30.8 MMOL/L (20-26); ABG Oxygen Saturation 96.7 % (95-100); ABG PCO2 53.1 MM HG (35-48); ABG PH 7.412 (7.35-7.45); ABG PO2 85.4 MM HG (80-95); ABG TCO2 28.1 MMOL/L (23-27)
[2022-07-14 04:27] LABS: Basophils # 0.1 10*3/uL (0.0-0.2); Basophils % 0.5 % (0.0-0.8); Eosinophils # 0.3 10*3/uL (0.0-0.87); Eosinophils % 2.2 % (0.00-10.9); Hematocrit 50.3 VOL% (42.0-52.0); Hemoglobin 16.3 GM/DL (14.0-18.0); Immature Granulocytes % 0.4 %; Immature Granulocytes Absolute 0.05 #; Lymphocytes # 1.2 10*3/uL (1.4-4.0); Lymphocytes % 9.2 % (21.2-54.2); Mean Corpuscular HGB Conc 32.4 GM/DL (32-36); Mean Corpuscular Volume 93.3 FL (87-102); Mean Platelet Volume 12.3 FL (9.6-12.0); Monocytes # 1.8 10*3/uL (0.11-0.8); Monocytes % 13.6 % (1.7-12.7); Neutrophils % 74.1 % (38.7-73.9); Platelet Count 162 T/CUMM (130-400); Red Blood Count 5.39 MC/CUMM (3.8-5.5); White Blood Count 12.9 T/CUMM (4-12)
[2022-07-14 04:39] LABS: Calcium 8.9 MG/DL (8.5-10.1); Osmolality,Calculated 277.9 MOS/KG (273-304); Potassium 4.7 MMOL/L (3.5-5.1)
[2022-07-14 04:52] LABS: Eosinophils 2 % (0-10); Lymphocytes 6 % (20-55); Total Cells Counted 100
[2022-07-14 04:53] LABS: Microcytosis Slight; Platelet Estimate Adequate
[2022-07-14] MEDS: NOREPINEPHRINE DRIP 8 MG/250 ML PREMIX IV PRN ×4 (05:07→20:47)
[2022-07-14] MEDS: INSULIN LISPRO 100 UNIT/ML SUBCUT SCH ×4 (05:44→20:27)
[2022-07-14] MEDS: guaiFENesin 200 MG/10 ML UDCUP PO SCH ×3 (05:44→17:56)
[2022-07-14] MEDS: DORNASE ALFA 2.5 MG/2.5 ML VIAL RESP TX SCH ×2 (07:15→19:37)
[2022-07-14] MEDS ORDERED: FUROSEMIDE 40 MG/4 ML VIAL IV ONE (08:05)
[2022-07-14] MEDS: POLYETHYLENE GLYCOL POWDER 17 GM PACK PO SCH (08:17)
[2022-07-14] MEDS: INSULIN GLARGINE 100 UNIT/ML SUBCUT SCH ×2 (08:17→20:29)
[2022-07-14] MEDS: ARIPiprazole 5 MG TABLET PO SCH (08:18)
[2022-07-14] MEDS: CETIRIZINE 10 MG TABLET PO SCH (08:18)
[2022-07-14] MEDS: CLOPIDOGREL 75 MG TABLET PO SCH (08:18)
[2022-07-14] MEDS: ASPIRIN CHEW 81 MG TABLET PO SCH (08:18)
[2022-07-14] MEDS: VENLAFAXINE 37.5 MG TABLET PO SCH ×2 (08:18→20:28)
[2022-07-14] MEDS: APIXABAN 5 MG TABLET PO SCH ×2 (08:18→20:28)
[2022-07-14] MEDS: GABAPENTIN 400 MG CAPSULE PO SCH ×2 (08:19→20:28)
[2022-07-14] MEDS: PREGABALIN 100 MG CAPSULE PO SCH ×3 (08:19→20:28)
[2022-07-14] MEDS: MULTIVITAMIN LIQUID (CENTRUM) 60 ML BOTTLE PO SCH (08:30)
[2022-07-14] MEDS: busPIRone 10 MG TABLET PO SCH ×2 (08:30→20:28)
[2022-07-14] MEDS ORDERED: SODIUM PHOSPHATE INJ 30 MMOL in SODIUM CHLORIDE 0.9% 250 ML IV ONE (08:30)
[2022-07-14] MEDS ORDERED: INSULIN LISPRO 100 UNIT/ML SUBCUT SCH (14:00)
[2022-07-14] MEDS: LEVOFLOXACIN 750 MG TABLET PER TUBE SCH (14:03)
[2022-07-14] MEDS ORDERED: ERGOCALCIFEROL 50,000 UNIT CAPSULE PO SCH (15:04)
[2022-07-14] MEDS: ZINC OXIDE PASTE 113 GM TUBE TOP PRN (15:19)
[2022-07-14] MEDS: cefTRIAXone 2,000 MG in SODIUM CHLORIDE 0.9% 100 ML IV SCH (15:19)
[2022-07-14] MEDS: ACETAMINOPHEN 325 MG TABLET PO PRN ×2 (15:20→20:29)
[2022-07-15] MEDS: guaiFENesin 200 MG/10 ML UDCUP PO SCH ×4 (00:03→17:03)
[2022-07-15] MEDS: INSULIN LISPRO 100 UNIT/ML SUBCUT SCH ×6 (00:03→20:51)
[2022-07-15] MEDS: ALBUTEROL/IPRATROPIUM 3 ML NEB RESP TX SCH ×4 (00:25→19:00)
[2022-07-15] MEDS: NOREPINEPHRINE DRIP 8 MG/250 ML PREMIX IV PRN ×5 (02:00→21:07)
[2022-07-15] MEDS: PANTOPRAZOLE 40 MG VIAL IV SCH (02:26)
[2022-07-15 04:25] LABS: ABG Base Excess 8.5 MMOL/L (-2.5-2.5); ABG HCO3 32.3 MMOL/L (20-26); ABG Oxygen Saturation 97.8 % (95-100); ABG PCO2 54.5 MM HG (35-48); ABG PH 7.421 (7.35-7.45); ABG TCO2 29.5 MMOL/L (23-27)
[2022-07-15 04:26] LABS: Basophils # 0.1 10*3/uL (0.0-0.2); Basophils % 0.5 % (0.0-0.8); Eosinophils # 0.1 10*3/uL (0.0-0.87); Hematocrit 49.9 VOL% (42.0-52.0); Immature Granulocytes % 0.3 %; Immature Granulocytes Absolute 0.04 #; Lymphocytes # 1.4 10*3/uL (1.4-4.0); Lymphocytes % 11.3 % (21.2-54.2); Mean Corpuscular HGB Conc 32.1 GM/DL (32-36); Mean Corpuscular Volume 93.6 FL (87-102); Mean Platelet Volume 12.9 FL (9.6-12.0); Monocytes # 2.1 10*3/uL (0.11-0.8); Monocytes % 16.7 % (1.7-12.7); Neutrophils % 70.2 % (38.7-73.9); Platelet Count 158 T/CUMM (130-400); Red Blood Count 5.33 MC/CUMM (3.8-5.5); Red Cell Distribution Width 13.8 % (9.3-17.3); White Blood Count 12.3 T/CUMM (4-12)
[2022-07-15 04:40] LABS: Calcium 8.3 MG/DL (8.5-10.1); Osmolality,Calculated 283.5 MOS/KG (273-304); Potassium 4.6 MMOL/L (3.5-5.1)
[2022-07-15 04:49] LABS: Lymphocytes 11 % (20-55); Platelet Estimate Adequate; Total Cells Counted 100
[2022-07-15] MEDS: POLYETHYLENE GLYCOL POWDER 17 GM PACK PO SCH (08:46)
[2022-07-15] MEDS: GABAPENTIN 400 MG CAPSULE PO SCH ×2 (08:46→20:52)
[2022-07-15] MEDS: INSULIN GLARGINE 100 UNIT/ML SUBCUT SCH ×2 (08:46→20:53)
[2022-07-15] MEDS: ARIPiprazole 5 MG TABLET PO SCH (08:47)
[2022-07-15] MEDS: PREGABALIN 100 MG CAPSULE PO SCH ×3 (08:47→20:52)
[2022-07-15] MEDS: VENLAFAXINE 37.5 MG TABLET PO SCH ×2 (08:47→20:51)
[2022-07-15] MEDS: APIXABAN 5 MG TABLET PO SCH ×2 (08:47→20:51)
[2022-07-15] MEDS: CETIRIZINE 10 MG TABLET PO SCH (08:48)
[2022-07-15] MEDS: ASPIRIN CHEW 81 MG TABLET PO SCH (08:48)
[2022-07-15] MEDS: busPIRone 10 MG TABLET PO SCH ×2 (08:48→20:52)
[2022-07-15] MEDS: CLOPIDOGREL 75 MG TABLET PO SCH (08:48)
[2022-07-15] MEDS: MULTIVITAMIN LIQUID (CENTRUM) 60 ML BOTTLE PO SCH (08:55)
[2022-07-15] MEDS ORDERED: FUROSEMIDE 40 MG/4 ML VIAL IV ONE (12:28)
[2022-07-15] MEDS: LEVOFLOXACIN 750 MG TABLET PER TUBE SCH (14:24)
[2022-07-15] MEDS: fentaNYL 25 MCG/HR PATCH TRANSDERM SCH (15:27)
[2022-07-15] MEDS: cefTRIAXone 2,000 MG in SODIUM CHLORIDE 0.9% 100 ML IV SCH (15:28)
[2022-07-15] MEDS: ACETAMINOPHEN 325 MG TABLET PO PRN ×2 (15:37→20:52)
[2022-07-15] MEDS ORDERED: IBUPROFEN 100 MG/5 ML UDCUP PO ONE (22:35)
[2022-07-15] MEDS ORDERED: ACETAMINOPHEN INJ 1,000 MG/100 ML VIAL IV ONE (23:47)
[2022-07-15] MEDS ORDERED: CYPROHEPTADINE 0.4 MG/ML 30 ML/BOTTLE PO ONE (23:56)
[2022-07-15] MEDS ORDERED: ROCURONIUM 500 MG in SODIUM CHLORIDE 0.9% 500 ML IV PRN (23:56)
[2022-07-16] MEDS: MIDAZOLAM DRIP 100 MG/100 ML PREMIX IV PRN ×3 (00:15→16:30)
[2022-07-16] MEDS: SODIUM CHLORIDE 0.9% 1,000 ML IV SCH ×3 (00:20→16:51)
[2022-07-16 00:28] LABS: Basophils # 0.1 10*3/uL (0.0-0.2); Basophils % 0.5 % (0.0-0.8); Eosinophils % 0.1 % (0.00-10.9); Hematocrit 48.1 VOL% (42.0-52.0); Hemoglobin 15.8 GM/DL (14.0-18.0); Immature Granulocytes % 1.1 %; Immature Granulocytes Absolute 0.14 #; Lymphocytes # 0.5 10*3/uL (1.4-4.0); Lymphocytes % 3.8 % (21.2-54.2); Mean Corpuscular HGB Conc 32.8 GM/DL (32-36); Mean Corpuscular Volume 93.9 FL (87-102); Mean Platelet Volume 13.3 FL (9.6-12.0); Monocytes # 0.7 10*3/uL (0.11-0.8); Monocytes % 4.9 % (1.7-12.7); Neutrophils % 89.6 % (38.7-73.9); Platelet Count 123 T/CUMM (130-400); Red Blood Count 5.12 MC/CUMM (3.8-5.5); Red Cell Distribution Width 13.5 % (9.3-17.3); White Blood Count 13.3 T/CUMM (4-12)
[2022-07-16] MEDS ORDERED: CYPROHEPTADINE 4 MG TABLET PO ONE ×2 (00:30→02:43)
[2022-07-16] MEDS: ALBUTEROL/IPRATROPIUM 3 ML NEB RESP TX SCH ×4 (00:30→18:55)
[2022-07-16 00:36] LABS: INR 1.4; PT Patient Result 14.9 SECS (10.1-12.1)
[2022-07-16 00:44] LABS: Bilirubin,Total 0.5 MG/DL (0.20-1.00); Calcium 8.2 MG/DL (8.5-10.1); Osmolality,Calculated 281.2 MOS/KG (273-304); Potassium 4.5 MMOL/L (3.5-5.1); Total Protein 6.1 G/DL (6.4-8.2)
[2022-07-16] MEDS: INSULIN LISPRO 100 UNIT/ML SUBCUT SCH ×6 (00:48→20:58)
[2022-07-16] MEDS: guaiFENesin 200 MG/10 ML UDCUP PO SCH ×4 (00:49→17:08)
[2022-07-16] MEDS: NOREPINEPHRINE DRIP 8 MG/250 ML PREMIX IV PRN (00:55)
[2022-07-16 01:02] LABS: Lymphocytes 4 % (20-55); Platelet Estimate Adequate; Total Cells Counted 100
[2022-07-16] MEDS ORDERED: LORazepam 2 MG/1 ML VIAL IV ONE (01:50)
[2022-07-16] MEDS: NOREPINEPHRINE 16 MG in SODIUM CHLORIDE 0.9% 234 ML IV PRN ×3 (02:40→08:34)
[2022-07-16] MEDS: PANTOPRAZOLE 40 MG VIAL IV SCH (03:12)
[2022-07-16 04:45] LABS: ABG Base Excess 8.8 MMOL/L (-2.5-2.5); ABG HCO3 32.5 MMOL/L (20-26); ABG Oxygen Saturation 95.7 % (95-100); ABG PCO2 61.9 MM HG (35-48); ABG PH 7.387 (7.35-7.45); ABG PO2 79.4 MM HG (80-95); ABG TCO2 30.9 MMOL/L (23-27)
[2022-07-16 04:48] LABS: Basophils # 0.1 10*3/uL (0.0-0.2); Basophils % 0.5 % (0.0-0.8); Hematocrit 50.7 VOL% (42.0-52.0); Hemoglobin 16.3 GM/DL (14.0-18.0); Immature Granulocytes % 0.5 %; Immature Granulocytes Absolute 0.08 #; Lymphocytes # 1.2 10*3/uL (1.4-4.0); Lymphocytes % 7.2 % (21.2-54.2); Mean Corpuscular HGB Conc 32.1 GM/DL (32-36); Mean Corpuscular Volume 92.9 FL (87-102); Mean Platelet Volume 13.4 FL (9.6-12.0); Monocytes % 12.6 % (1.7-12.7); Neutrophils % 79.2 % (38.7-73.9); Red Blood Count 5.46 MC/CUMM (3.8-5.5); Red Cell Distribution Width 13.5 % (9.3-17.3); White Blood Count 16.1 T/CUMM (4-12)
[2022-07-16 04:49] LABS: Platelet Count 113 T/CUMM (130-400)
[2022-07-16 05:05] LABS: Calcium 7.6 MG/DL (8.5-10.1); Osmolality,Calculated 285.9 MOS/KG (273-304); Potassium 4.1 MMOL/L (3.5-5.1)
[2022-07-16] MEDS ORDERED: INSULIN REGULAR 100 UNIT/ML IV ONE (06:14)
[2022-07-16] MEDS: POLYETHYLENE GLYCOL POWDER 17 GM PACK PO SCH (09:24)
[2022-07-16] MEDS: CYPROHEPTADINE 4 MG TABLET PO SCH ×3 (09:25→20:58)
[2022-07-16] MEDS: ASPIRIN CHEW 81 MG TABLET PO SCH (09:25)
[2022-07-16] MEDS: APIXABAN 5 MG TABLET PO SCH ×2 (09:25→20:58)
[2022-07-16] MEDS: MULTIVITAMIN LIQUID (CENTRUM) 60 ML BOTTLE PO SCH (09:25)
[2022-07-16] MEDS: CLOPIDOGREL 75 MG TABLET PO SCH (09:25)
[2022-07-16] MEDS: INSULIN GLARGINE 100 UNIT/ML SUBCUT SCH ×2 (09:28→20:57)
[2022-07-16 09:55] LABS: ABG Base Excess 7.9 MMOL/L (-2.5-2.5); ABG HCO3 31.6 MMOL/L (20-26); ABG Oxygen Saturation 97.9 % (95-100); ABG PH 7.453 (7.35-7.45); ABG TCO2 27.4 MMOL/L (23-27)
[2022-07-16] MEDS: NOREPINEPHRINE 32 MG in SODIUM CHLORIDE 0.9% 468 ML IV PRN (13:38)
[2022-07-16] MEDS: LEVOFLOXACIN 750 MG TABLET PER TUBE SCH (14:25)
[2022-07-16] MEDS: ACETAMINOPHEN 325 MG TABLET PO PRN (14:26)
[2022-07-16] MEDS: cefTRIAXone 2,000 MG in SODIUM CHLORIDE 0.9% 100 ML IV SCH (16:07)
[2022-07-17] MEDS: INSULIN LISPRO 100 UNIT/ML SUBCUT SCH ×6 (00:26→21:05)
[2022-07-17] MEDS: ALBUTEROL/IPRATROPIUM 3 ML NEB RESP TX SCH ×4 (00:39→18:11)
[2022-07-17] MEDS: guaiFENesin 200 MG/10 ML UDCUP PO SCH ×4 (00:41→18:06)
[2022-07-17] MEDS: MIDAZOLAM DRIP 100 MG/100 ML PREMIX IV PRN ×2 (01:22→09:22)
[2022-07-17] MEDS: SODIUM CHLORIDE 0.9% 1,000 ML IV SCH ×2 (01:31→11:00)
[2022-07-17] MEDS: NOREPINEPHRINE 32 MG in SODIUM CHLORIDE 0.9% 468 ML IV PRN ×2 (01:50→13:33)
[2022-07-17] MEDS: CYPROHEPTADINE 4 MG TABLET PO SCH ×4 (03:58→21:05)
[2022-07-17] MEDS: PANTOPRAZOLE 40 MG VIAL IV SCH (03:58)
[2022-07-17 05:11] LABS: ABG Base Excess 6.3 MMOL/L (-2.5-2.5); ABG HCO3 30.1 MMOL/L (20-26); ABG PCO2 44.8 MM HG (35-48); ABG PH 7.452 (7.35-7.45); ABG TCO2 25.9 MMOL/L (23-27)
[2022-07-17 05:13] LABS: Basophils # 0.1 10*3/uL (0.0-0.2); Basophils % 0.3 % (0.0-0.8); Eosinophils # 0.1 10*3/uL (0.0-0.87); Eosinophils % 0.4 % (0.00-10.9); Hematocrit 49.3 VOL% (42.0-52.0); Hemoglobin 16.2 GM/DL (14.0-18.0); Immature Granulocytes % 0.3 %; Immature Granulocytes Absolute 0.05 #; Lymphocytes # 1.1 10*3/uL (1.4-4.0); Lymphocytes % 7.3 % (21.2-54.2); Mean Corpuscular HGB Conc 32.9 GM/DL (32-36); Mean Corpuscular Volume 92.8 FL (87-102); Mean Platelet Volume 13.7 FL (9.6-12.0); Monocytes # 1.6 10*3/uL (0.11-0.8); Monocytes % 10.6 % (1.7-12.7); Neutrophils % 81.1 % (38.7-73.9); Platelet Count 98 T/CUMM (130-400); Red Blood Count 5.31 MC/CUMM (3.8-5.5); Red Cell Distribution Width 13.8 % (9.3-17.3); White Blood Count 15.1 T/CUMM (4-12)
[2022-07-17 05:24] LABS: Calcium 7.8 MG/DL (8.5-10.1); Osmolality,Calculated 287.4 MOS/KG (273-304); Potassium 3.8 MMOL/L (3.5-5.1)
[2022-07-17 05:45] LABS: Lymphocytes 4 % (20-55); Platelet Estimate Decreased; Total Cells Counted 100
[2022-07-17] MEDS: MULTIVITAMIN LIQUID (CENTRUM) 60 ML BOTTLE PO SCH (09:09)
[2022-07-17] MEDS: ASPIRIN CHEW 81 MG TABLET PO SCH (09:10)
[2022-07-17] MEDS: INSULIN GLARGINE 100 UNIT/ML SUBCUT SCH ×2 (09:10→21:05)
[2022-07-17] MEDS: APIXABAN 5 MG TABLET PO SCH ×2 (09:10→21:05)
[2022-07-17] MEDS: POLYETHYLENE GLYCOL POWDER 17 GM PACK PO SCH (09:10)
[2022-07-17] MEDS: CLOPIDOGREL 75 MG TABLET PO SCH (09:10)
[2022-07-17] MEDS: FAMOTIDINE 8 MG/ML 50 ML/BOTTLE PO SCH ×2 (12:18→21:05)
[2022-07-17] MEDS: LACTULOSE 20 GM/30 ML UDCUP PO PRN (12:22)
[2022-07-17] MEDS: ZINC OXIDE PASTE 113 GM TUBE TOP PRN (12:23)
[2022-07-17] MEDS ORDERED: FUROSEMIDE 40 MG/4 ML VIAL IV ONE (13:30)
[2022-07-17] MEDS ORDERED: FUROSEMIDE 40 MG/4 ML VIAL ONE (13:35)
[2022-07-17] MEDS: methylPREDNISolone SOD SUC 40 MG/1 ML VIAL IV SCH (13:50)
[2022-07-17] MEDS: cefTRIAXone 2,000 MG in SODIUM CHLORIDE 0.9% 100 ML IV SCH (16:12)
[2022-07-17] MEDS ORDERED: BUDESONIDE 0.5 MG/2 ML NEB RESP TX ONE (17:21)
[2022-07-17] MEDS ORDERED: DORNASE ALFA 2.5 MG/2.5 ML VIAL ONE (17:22)
[2022-07-17] MEDS: BUDESONIDE 0.5 MG/2 ML NEB RESP TX SCH (18:11)
[2022-07-17] MEDS: DORNASE ALFA 2.5 MG/2.5 ML VIAL RESP TX SCH (18:27)
[2022-07-18] MEDS: INSULIN LISPRO 100 UNIT/ML SUBCUT SCH ×8 (00:20→21:27)
[2022-07-18] MEDS: methylPREDNISolone SOD SUC 40 MG/1 ML VIAL IV SCH ×2 (01:25→12:47)
[2022-07-18] MEDS: guaiFENesin 200 MG/10 ML UDCUP PO SCH ×4 (01:25→18:14)
[2022-07-18] MEDS: ALBUTEROL/IPRATROPIUM 3 ML NEB RESP TX SCH ×4 (01:48→19:45)
[2022-07-18] MEDS: SODIUM CHLORIDE 0.9% 1,000 ML IV SCH ×2 (03:41→03:43)
[2022-07-18 04:05] LABS: ABG Base Excess 7.3 MMOL/L (-2.5-2.5); ABG HCO3 31.1 MMOL/L (20-26); ABG Oxygen Saturation 99.1 % (95-100); ABG PCO2 39.7 MM HG (35-48); ABG PH 7.501 (7.35-7.45); ABG TCO2 25.7 MMOL/L (23-27)
[2022-07-18 04:09] LABS: Basophils % 0.1 % (0.0-0.8); Hematocrit 46.7 VOL% (42.0-52.0); Hemoglobin 15.4 GM/DL (14.0-18.0); Immature Granulocytes % 0.4 %; Immature Granulocytes Absolute 0.06 #; Lymphocytes # 0.4 10*3/uL (1.4-4.0); Lymphocytes % 2.9 % (21.2-54.2); Mean Corpuscular Volume 91.6 FL (87-102); Monocytes # 0.5 10*3/uL (0.11-0.8); Monocytes % 3.5 % (1.7-12.7); Neutrophils % 93.1 % (38.7-73.9); Platelet Count 102 T/CUMM (130-400); Red Cell Distribution Width 13.7 % (9.3-17.3); White Blood Count 13.5 T/CUMM (4-12)
[2022-07-18 04:30] LABS: Lymphocytes 1 % (20-55); Total Cells Counted 100
[2022-07-18 04:44] LABS: Calcium 8.2 MG/DL (8.5-10.1); Osmolality,Calculated 291.7 MOS/KG (273-304); Potassium 4.1 MMOL/L (3.5-5.1)
[2022-07-18] MEDS: CYPROHEPTADINE 4 MG TABLET PO SCH ×4 (04:59→21:29)
[2022-07-18] MEDS: NOREPINEPHRINE 32 MG in SODIUM CHLORIDE 0.9% 468 ML IV PRN (06:20)
[2022-07-18] MEDS: BUDESONIDE 0.5 MG/2 ML NEB RESP TX SCH ×2 (07:16→19:45)
[2022-07-18] MEDS: DORNASE ALFA 2.5 MG/2.5 ML VIAL RESP TX SCH ×2 (07:16→19:34)
[2022-07-18] MEDS: INSULIN GLARGINE 100 UNIT/ML SUBCUT SCH ×2 (09:12→21:29)
[2022-07-18] MEDS: ASPIRIN CHEW 81 MG TABLET PO SCH (09:13)
[2022-07-18] MEDS: APIXABAN 5 MG TABLET PO SCH ×2 (09:13→21:27)
[2022-07-18] MEDS: MULTIVITAMIN LIQUID (CENTRUM) 60 ML BOTTLE PO SCH (09:13)
[2022-07-18] MEDS: CLOPIDOGREL 75 MG TABLET PO SCH (09:13)
[2022-07-18] MEDS: FAMOTIDINE 8 MG/ML 50 ML/BOTTLE PO SCH ×2 (09:13→21:27)
[2022-07-18] MEDS: POLYETHYLENE GLYCOL POWDER 17 GM PACK PO SCH (09:15)
[2022-07-18] MEDS ORDERED: FUROSEMIDE 40 MG/4 ML VIAL IV ONE (10:46)
[2022-07-18] MEDS: ACETAMINOPHEN 325 MG TABLET PO PRN (11:07)
[2022-07-18] MEDS ORDERED: MIDAZOLAM 2 MG/2 ML VIAL IV ONE (11:45)
[2022-07-18] MEDS ORDERED: MIDAZOLAM 2 MG/2 ML VIAL ONE (11:49)
[2022-07-18] MEDS: fentaNYL 12 MCG/HR PATCH TRANSDERM SCH (13:47)
[2022-07-18] MEDS: cefTRIAXone 2,000 MG in SODIUM CHLORIDE 0.9% 100 ML IV SCH (16:19)
[2022-07-19] MEDS: ALBUTEROL/IPRATROPIUM 3 ML NEB RESP TX SCH ×4 (00:22→19:25)
[2022-07-19] MEDS: INSULIN LISPRO 100 UNIT/ML SUBCUT SCH ×9 (00:36→20:58)
[2022-07-19] MEDS: guaiFENesin 200 MG/10 ML UDCUP PO SCH ×4 (00:36→18:03)
[2022-07-19] MEDS: CYPROHEPTADINE 4 MG TABLET PO SCH ×4 (02:28→20:57)
[2022-07-19] MEDS: methylPREDNISolone SOD SUC 40 MG/1 ML VIAL IV SCH ×2 (02:28→14:12)
[2022-07-19] MEDS: NOREPINEPHRINE 32 MG in SODIUM CHLORIDE 0.9% 468 ML IV PRN (02:46)
[2022-07-19 03:52] LABS: ABG HCO3 30.8 MMOL/L (20-26); ABG Oxygen Saturation 98.4 % (95-100); ABG PCO2 41.7 MM HG (35-48); ABG PH 7.483 (7.35-7.45); ABG TCO2 26.2 MMOL/L (23-27)
[2022-07-19 04:09] LABS: Basophils % 0.1 % (0.0-0.8); Hematocrit 45.8 VOL% (42.0-52.0); Hemoglobin 14.9 GM/DL (14.0-18.0); Immature Granulocytes % 0.8 %; Immature Granulocytes Absolute 0.12 #; Lymphocytes # 0.7 10*3/uL (1.4-4.0); Lymphocytes % 4.7 % (21.2-54.2); Mean Corpuscular HGB Conc 32.5 GM/DL (32-36); Mean Platelet Volume 13.7 FL (9.6-12.0); Monocytes # 1.1 10*3/uL (0.11-0.8); Monocytes % 7.3 % (1.7-12.7); Neutrophils % 87.1 % (38.7-73.9); Red Blood Count 4.98 MC/CUMM (3.8-5.5); Red Cell Distribution Width 13.7 % (9.3-17.3)
[2022-07-19 04:12] LABS: Platelet Count 161 T/CUMM (130-400)
[2022-07-19 04:23] LABS: Calcium 8.8 MG/DL (8.5-10.1); Potassium 3.8 MMOL/L (3.5-5.1)
[2022-07-19] MEDS: MIDAZOLAM DRIP 100 MG/100 ML PREMIX IV PRN ×2 (04:42→18:58)
[2022-07-19 04:53] LABS: Hypochromia Slight; Lymphocytes 4 % (20-55); Platelet Estimate Adequate; Total Cells Counted 100
[2022-07-19] MEDS: BUDESONIDE 0.5 MG/2 ML NEB RESP TX SCH ×2 (07:46→19:25)
[2022-07-19] MEDS: DORNASE ALFA 2.5 MG/2.5 ML VIAL RESP TX SCH ×2 (08:11→19:25)
[2022-07-19] MEDS: ARIPiprazole 5 MG TABLET PO SCH (09:00)
[2022-07-19] MEDS: GABAPENTIN 400 MG CAPSULE PO SCH ×2 (09:01→20:57)
[2022-07-19] MEDS: INSULIN GLARGINE 100 UNIT/ML SUBCUT SCH ×2 (09:13→20:57)
[2022-07-19] MEDS: ASPIRIN CHEW 81 MG TABLET PO SCH (09:14)
[2022-07-19] MEDS: POLYETHYLENE GLYCOL POWDER 17 GM PACK PO SCH (09:14)
[2022-07-19] MEDS: CLOPIDOGREL 75 MG TABLET PO SCH (09:14)
[2022-07-19] MEDS: APIXABAN 5 MG TABLET PO SCH ×2 (09:14→20:56)
[2022-07-19] MEDS: FUROSEMIDE 40 MG/4 ML VIAL IV SCH (09:15)
[2022-07-19] MEDS: MULTIVITAMIN LIQUID (CENTRUM) 60 ML BOTTLE PO SCH (09:18)
[2022-07-19] MEDS: FAMOTIDINE 8 MG/ML 50 ML/BOTTLE PO SCH ×2 (09:18→20:57)
[2022-07-19] MEDS: cefTRIAXone 2,000 MG in SODIUM CHLORIDE 0.9% 100 ML IV SCH (15:36)
[2022-07-19] MEDS: ACETAMINOPHEN 325 MG TABLET PO PRN ×2 (16:28→21:09)
[2022-07-19] MEDS: LACTULOSE 20 GM/30 ML UDCUP PO PRN (16:31)
[2022-07-20] MEDS: ALBUTEROL/IPRATROPIUM 3 ML NEB RESP TX SCH ×4 (00:32→19:00)
[2022-07-20] MEDS: methylPREDNISolone SOD SUC 40 MG/1 ML VIAL IV SCH ×2 (00:48→13:41)
[2022-07-20] MEDS: INSULIN LISPRO 100 UNIT/ML SUBCUT SCH ×9 (00:51→21:01)
[2022-07-20] MEDS: guaiFENesin 200 MG/10 ML UDCUP PO SCH ×4 (00:51→17:52)
[2022-07-20] MEDS: NOREPINEPHRINE 32 MG in SODIUM CHLORIDE 0.9% 468 ML IV PRN (01:42)
[2022-07-20 03:28] LABS: ABG Base Excess 5.4 MMOL/L (-2.5-2.5); ABG HCO3 29.3 MMOL/L (20-26); ABG Oxygen Saturation 98.6 % (95-100); ABG PCO2 37.2 MM HG (35-48); ABG PH 7.495 (7.35-7.45); ABG TCO2 24.2 MMOL/L (23-27)
[2022-07-20 03:43] LABS: Basophils % 0.2 % (0.0-0.8); Hematocrit 44.4 VOL% (42.0-52.0); Hemoglobin 14.7 GM/DL (14.0-18.0); Immature Granulocytes % 0.8 %; Immature Granulocytes Absolute 0.12 #; Lymphocytes # 0.7 10*3/uL (1.4-4.0); Lymphocytes % 4.6 % (21.2-54.2); Mean Corpuscular HGB Conc 33.1 GM/DL (32-36); Mean Corpuscular Volume 92.1 FL (87-102); Mean Platelet Volume 12.2 FL (9.6-12.0); Monocytes # 1.1 10*3/uL (0.11-0.8); Monocytes % 7.1 % (1.7-12.7); Neutrophils % 87.3 % (38.7-73.9); Red Blood Count 4.82 MC/CUMM (3.8-5.5); Red Cell Distribution Width 13.8 % (9.3-17.3); White Blood Count 15.3 T/CUMM (4-12)
[2022-07-20 03:44] LABS: Platelet Count 236 T/CUMM (130-400)
[2022-07-20 03:47] LABS: Calcium 8.7 MG/DL (8.5-10.1); Osmolality,Calculated 285.2 MOS/KG (273-304); Potassium 4.5 MMOL/L (3.5-5.1)
[2022-07-20 04:01] LABS: Lymphocytes 4 % (20-55); Platelet Estimate Adequate; Total Cells Counted 100
[2022-07-20 04:02] LABS: Giant Platelets Few
[2022-07-20] MEDS: BUDESONIDE 0.5 MG/2 ML NEB RESP TX SCH ×2 (07:09→19:00)
[2022-07-20] MEDS: DORNASE ALFA 2.5 MG/2.5 ML VIAL RESP TX SCH ×2 (07:10→19:00)
[2022-07-20] MEDS: POLYETHYLENE GLYCOL POWDER 17 GM PACK PO SCH (08:35)
[2022-07-20] MEDS: MULTIVITAMIN LIQUID (CENTRUM) 60 ML BOTTLE PO SCH (08:36)
[2022-07-20] MEDS: INSULIN GLARGINE 100 UNIT/ML SUBCUT SCH ×2 (08:36→21:02)
[2022-07-20] MEDS: ASPIRIN CHEW 81 MG TABLET PO SCH (08:37)
[2022-07-20] MEDS: APIXABAN 5 MG TABLET PO SCH ×2 (08:37→21:01)
[2022-07-20] MEDS: CYPROHEPTADINE 4 MG TABLET PO SCH ×3 (08:37→21:00)
[2022-07-20] MEDS: ARIPiprazole 5 MG TABLET PO SCH (08:37)
[2022-07-20] MEDS: GABAPENTIN 400 MG CAPSULE PO SCH ×2 (08:37→21:01)
[2022-07-20] MEDS: CLOPIDOGREL 75 MG TABLET PO SCH (08:37)
[2022-07-20] MEDS: FAMOTIDINE 8 MG/ML 50 ML/BOTTLE PO SCH ×2 (08:38→21:01)
[2022-07-20] MEDS: FUROSEMIDE 40 MG/4 ML VIAL IV SCH (08:38)
[2022-07-20] MEDS: LACTULOSE 20 GM/30 ML UDCUP PO PRN (09:27)
[2022-07-20] MEDS: MIDAZOLAM DRIP 100 MG/100 ML PREMIX IV PRN (13:18)
[2022-07-20] MEDS: cefTRIAXone 2,000 MG in SODIUM CHLORIDE 0.9% 100 ML IV SCH (15:44)
[2022-07-20] MEDS: ACETAMINOPHEN 325 MG TABLET PO PRN (18:33)
[2022-07-21] MEDS: guaiFENesin 200 MG/10 ML UDCUP PO SCH ×4 (00:03→17:43)
[2022-07-21] MEDS: INSULIN LISPRO 100 UNIT/ML SUBCUT SCH ×9 (00:03→21:16)
[2022-07-21] MEDS: ALBUTEROL/IPRATROPIUM 3 ML NEB RESP TX SCH ×4 (00:15→19:04)
[2022-07-21] MEDS: methylPREDNISolone SOD SUC 40 MG/1 ML VIAL IV SCH ×2 (02:08→13:44)
[2022-07-21 04:29] LABS: ABG Base Excess 6.3 MMOL/L (-2.5-2.5); ABG HCO3 30.1 MMOL/L (20-26); ABG Oxygen Saturation 98.1 % (95-100); ABG PCO2 42.2 MM HG (35-48); ABG PH 7.469 (7.35-7.45); ABG TCO2 25.8 MMOL/L (23-27)
[2022-07-21 04:34] LABS: Basophils % 0.1 % (0.0-0.8); Hematocrit 46.2 VOL% (42.0-52.0); Hemoglobin 15.2 GM/DL (14.0-18.0); Immature Granulocytes % 0.6 %; Lymphocytes # 0.7 10*3/uL (1.4-4.0); Lymphocytes % 4.2 % (21.2-54.2); Mean Corpuscular HGB Conc 32.9 GM/DL (32-36); Mean Corpuscular Volume 91.5 FL (87-102); Mean Platelet Volume 12.1 FL (9.6-12.0); Monocytes # 1.4 10*3/uL (0.11-0.8); Neutrophils % 87.1 % (38.7-73.9); Platelet Count 328 T/CUMM (130-400); Red Blood Count 5.05 MC/CUMM (3.8-5.5); Red Cell Distribution Width 13.3 % (9.3-17.3); White Blood Count 17.5 T/CUMM (4-12)
[2022-07-21 04:46] LABS: Calcium 8.5 MG/DL (8.5-10.1); Osmolality,Calculated 280.2 MOS/KG (273-304); Potassium 4.4 MMOL/L (3.5-5.1)
[2022-07-21 05:01] LABS: Albumin 2.4 G/DL (3.4-5.0); Bilirubin,Direct 0.2 MG/DL (0.0-0.20); Bilirubin,Indirect 0.3 MG/DL (0.0-1.0); Bilirubin,Total 0.5 MG/DL (0.20-1.00); Total Protein 5.6 G/DL (6.4-8.2)
[2022-07-21 05:28] LABS: Anisocytosis Slight; Band Neutrophils 1 % (0-10); Lymphocytes 7 % (20-55); Platelet Estimate Normal; Total Cells Counted 100
[2022-07-21 05:29] LABS: Macrocytosis Slight
[2022-07-21] MEDS: DORNASE ALFA 2.5 MG/2.5 ML VIAL RESP TX SCH ×2 (06:57→19:04)
[2022-07-21] MEDS: BUDESONIDE 0.5 MG/2 ML NEB RESP TX SCH ×2 (06:57→19:04)
[2022-07-21] MEDS: MULTIVITAMIN LIQUID (CENTRUM) 60 ML BOTTLE PO SCH (09:25)
[2022-07-21] MEDS: FUROSEMIDE 40 MG/4 ML VIAL IV SCH (09:26)
[2022-07-21] MEDS: INSULIN GLARGINE 100 UNIT/ML SUBCUT SCH ×2 (09:26→21:16)
[2022-07-21] MEDS: ARIPiprazole 5 MG TABLET PO SCH (09:27)
[2022-07-21] MEDS: APIXABAN 5 MG TABLET PO SCH ×2 (09:28→21:15)
[2022-07-21] MEDS: CYPROHEPTADINE 4 MG TABLET PO SCH ×3 (09:28→21:15)
[2022-07-21] MEDS: CLOPIDOGREL 75 MG TABLET PO SCH (09:28)
[2022-07-21] MEDS: GABAPENTIN 400 MG CAPSULE PO SCH ×2 (09:28→21:15)
[2022-07-21] MEDS: fentaNYL 12 MCG/HR PATCH TRANSDERM SCH (09:32)
[2022-07-21] MEDS: ASPIRIN CHEW 81 MG TABLET PO SCH (09:37)
[2022-07-21] MEDS: FAMOTIDINE 8 MG/ML 50 ML/BOTTLE PO SCH ×2 (09:38→21:15)
[2022-07-21] MEDS: ZINC OXIDE PASTE 113 GM TUBE TOP PRN (09:39)
[2022-07-21] MEDS: POLYETHYLENE GLYCOL POWDER 17 GM PACK PO SCH (09:40)
[2022-07-21] MEDS: NOREPINEPHRINE 32 MG in SODIUM CHLORIDE 0.9% 468 ML IV PRN (10:09)
[2022-07-21] MEDS: cefTRIAXone 2,000 MG in SODIUM CHLORIDE 0.9% 100 ML IV SCH (16:05)
[2022-07-22] MEDS: ALBUTEROL/IPRATROPIUM 3 ML NEB RESP TX SCH ×4 (00:40→19:26)
[2022-07-22] MEDS: INSULIN LISPRO 100 UNIT/ML SUBCUT SCH ×10 (00:58→23:35)
[2022-07-22] MEDS: guaiFENesin 200 MG/10 ML UDCUP PO SCH ×5 (00:58→23:36)
[2022-07-22] MEDS: methylPREDNISolone SOD SUC 40 MG/1 ML VIAL IV SCH ×2 (02:10→14:15)
[2022-07-22 04:32] LABS: ABG Base Excess 6.6 MMOL/L (-2.5-2.5); ABG HCO3 30.4 MMOL/L (20-26); ABG Oxygen Saturation 98.2 % (95-100); ABG PCO2 47.5 MM HG (35-48); ABG PH 7.439 (7.35-7.45); ABG TCO2 26.9 MMOL/L (23-27)
[2022-07-22 04:37] LABS: Basophils % 0.1 % (0.0-0.8); Hematocrit 47.3 VOL% (42.0-52.0); Hemoglobin 15.7 GM/DL (14.0-18.0); Immature Granulocytes % 0.9 %; Immature Granulocytes Absolute 0.18 #; Lymphocytes % 4.8 % (21.2-54.2); Mean Corpuscular HGB Conc 33.2 GM/DL (32-36); Mean Corpuscular Volume 91.1 FL (87-102); Mean Platelet Volume 11.6 FL (9.6-12.0); Monocytes # 1.7 10*3/uL (0.11-0.8); Monocytes % 8.3 % (1.7-12.7); Neutrophils % 85.9 % (38.7-73.9); Platelet Count 479 T/CUMM (130-400); Red Blood Count 5.19 MC/CUMM (3.8-5.5); Red Cell Distribution Width 13.1 % (9.3-17.3)
[2022-07-22 04:50] LABS: Calcium 9.1 MG/DL (8.5-10.1); Osmolality,Calculated 277.5 MOS/KG (273-304); Potassium 4.3 MMOL/L (3.5-5.1)
[2022-07-22 05:01] LABS: Lymphocytes 3 % (20-55); Total Cells Counted 100
[2022-07-22 05:02] LABS: Platelet Estimate Adequate
[2022-07-22] MEDS: DORNASE ALFA 2.5 MG/2.5 ML VIAL RESP TX SCH ×2 (07:00→19:28)
[2022-07-22] MEDS: BUDESONIDE 0.5 MG/2 ML NEB RESP TX SCH ×2 (07:00→19:27)
[2022-07-22] MEDS: POLYETHYLENE GLYCOL POWDER 17 GM PACK PO SCH (08:35)
[2022-07-22] MEDS: APIXABAN 5 MG TABLET PO SCH ×2 (08:36→21:08)
[2022-07-22] MEDS: ASPIRIN CHEW 81 MG TABLET PO SCH (08:36)
[2022-07-22] MEDS: CLOPIDOGREL 75 MG TABLET PO SCH (08:36)
[2022-07-22] MEDS: ARIPiprazole 5 MG TABLET PO SCH (08:36)
[2022-07-22] MEDS: CYPROHEPTADINE 4 MG TABLET PO SCH ×3 (08:36→21:08)
[2022-07-22] MEDS: GABAPENTIN 400 MG CAPSULE PO SCH ×2 (08:36→21:08)
[2022-07-22] MEDS: FAMOTIDINE 8 MG/ML 50 ML/BOTTLE PO SCH ×2 (08:37→21:05)
[2022-07-22] MEDS: FUROSEMIDE 40 MG/4 ML VIAL IV SCH (08:37)
[2022-07-22] MEDS: INSULIN GLARGINE 100 UNIT/ML SUBCUT SCH ×2 (08:53→21:07)
[2022-07-22] MEDS: MULTIVITAMIN LIQUID (CENTRUM) 60 ML BOTTLE PO SCH (08:53)
[2022-07-22] MEDS: NOREPINEPHRINE 32 MG in SODIUM CHLORIDE 0.9% 468 ML IV PRN (09:45)
[2022-07-22 15:24] LABS: ABG Base Excess 7.1 MMOL/L (-2.5-2.5); ABG Oxygen Saturation 99.1 % (95-100); ABG PCO2 47.2 MM HG (35-48); ABG PH 7.447 (7.35-7.45); ABG TCO2 27.4 MMOL/L (23-27)
[2022-07-22] MEDS: cefTRIAXone 2,000 MG in SODIUM CHLORIDE 0.9% 100 ML IV SCH (15:27)
[2022-07-23] MEDS: ALBUTEROL/IPRATROPIUM 3 ML NEB RESP TX SCH ×4 (00:05→19:13)
[2022-07-23] MEDS: methylPREDNISolone SOD SUC 40 MG/1 ML VIAL IV SCH ×2 (01:26→14:18)
[2022-07-23 03:31] LABS: Basophils % 0.2 % (0.0-0.8); Hematocrit 44.6 VOL% (42.0-52.0); Hemoglobin 15.1 GM/DL (14.0-18.0); Immature Granulocytes % 1.6 %; Immature Granulocytes Absolute 0.34 #; Lymphocytes # 0.8 10*3/uL (1.4-4.0); Lymphocytes % 3.8 % (21.2-54.2); Mean Corpuscular HGB Conc 33.9 GM/DL (32-36); Mean Platelet Volume 11.2 FL (9.6-12.0); Monocytes # 1.6 10*3/uL (0.11-0.8); Monocytes % 7.7 % (1.7-12.7); Neutrophils % 86.7 % (38.7-73.9); Platelet Count 590 T/CUMM (130-400); Red Cell Distribution Width 13.2 % (9.3-17.3)
[2022-07-23 03:35] LABS: ABG Base Excess 7.4 MMOL/L (-2.5-2.5); ABG HCO3 31.2 MMOL/L (20-26); ABG PCO2 48.1 MM HG (35-48); ABG PH 7.444 (7.35-7.45); ABG TCO2 27.8 MMOL/L (23-27)
[2022-07-23 03:51] LABS: Lymphocytes 4 % (20-55); Platelet Estimate Increased; Total Cells Counted 100
[2022-07-23 03:52] LABS: Calcium 8.9 MG/DL (8.5-10.1); Osmolality,Calculated 279.7 MOS/KG (273-304); Potassium 4.7 MMOL/L (3.5-5.1)
[2022-07-23] MEDS: INSULIN LISPRO 100 UNIT/ML SUBCUT SCH ×8 (04:11→21:11)
[2022-07-23] MEDS: guaiFENesin 200 MG/10 ML UDCUP PO SCH ×3 (05:35→17:24)
[2022-07-23] MEDS: DORNASE ALFA 2.5 MG/2.5 ML VIAL RESP TX SCH ×2 (07:08→19:25)
[2022-07-23] MEDS: BUDESONIDE 0.5 MG/2 ML NEB RESP TX SCH ×2 (07:17→19:13)
[2022-07-23] MEDS: FUROSEMIDE 40 MG/4 ML VIAL IV SCH (09:02)
[2022-07-23] MEDS: INSULIN GLARGINE 100 UNIT/ML SUBCUT SCH ×2 (09:05→21:12)
[2022-07-23] MEDS: ASPIRIN CHEW 81 MG TABLET PO SCH (09:05)
[2022-07-23] MEDS: ARIPiprazole 5 MG TABLET PO SCH (09:05)
[2022-07-23] MEDS: GABAPENTIN 400 MG CAPSULE PO SCH ×2 (09:06→21:09)
[2022-07-23] MEDS: APIXABAN 5 MG TABLET PO SCH ×2 (09:06→21:09)
[2022-07-23] MEDS: CYPROHEPTADINE 4 MG TABLET PO SCH (09:06)
[2022-07-23] MEDS: CLOPIDOGREL 75 MG TABLET PO SCH (09:06)
[2022-07-23] MEDS: MULTIVITAMIN LIQUID (CENTRUM) 60 ML BOTTLE PO SCH (09:09)
[2022-07-23] MEDS: ZINC OXIDE PASTE 113 GM TUBE TOP PRN (09:09)
[2022-07-23] MEDS: FAMOTIDINE 8 MG/ML 50 ML/BOTTLE PO SCH ×2 (09:09→21:10)
[2022-07-23] MEDS: POLYETHYLENE GLYCOL POWDER 17 GM PACK PO SCH (09:11)
[2022-07-23 10:38] VITALS: BP 111/69
[2022-07-23] MEDS: cefTRIAXone 2,000 MG in SODIUM CHLORIDE 0.9% 100 ML IV SCH (16:12)
[2022-07-23] MEDS: NOREPINEPHRINE 32 MG in SODIUM CHLORIDE 0.9% 468 ML IV PRN (19:51)
[2022-07-24] MEDS: guaiFENesin 200 MG/10 ML UDCUP PO SCH ×4 (00:07→17:35)
[2022-07-24] MEDS: INSULIN LISPRO 100 UNIT/ML SUBCUT SCH ×9 (00:07→20:55)
[2022-07-24] MEDS: ALBUTEROL/IPRATROPIUM 3 ML NEB RESP TX SCH ×4 (01:13→20:34)
[2022-07-24] MEDS: methylPREDNISolone SOD SUC 40 MG/1 ML VIAL IV SCH ×2 (01:51→13:40)
[2022-07-24 04:08] LABS: Basophils % 0.1 % (0.0-0.8); Hematocrit 45.1 VOL% (42.0-52.0); Immature Granulocytes % 1.8 %; Immature Granulocytes Absolute 0.35 #; Lymphocytes % 5.2 % (21.2-54.2); Mean Corpuscular HGB Conc 33.3 GM/DL (32-36); Mean Corpuscular Volume 90.9 FL (87-102); Mean Platelet Volume 11.2 FL (9.6-12.0); Monocytes # 1.7 10*3/uL (0.11-0.8); Monocytes % 8.4 % (1.7-12.7); Neutrophils % 84.5 % (38.7-73.9); Platelet Count 651 T/CUMM (130-400); Red Blood Count 4.96 MC/CUMM (3.8-5.5); Red Cell Distribution Width 13.2 % (9.3-17.3); White Blood Count 19.7 T/CUMM (4-12)
[2022-07-24 04:10] LABS: ABG Base Excess 6.9 MMOL/L (-2.5-2.5); ABG HCO3 30.6 MMOL/L (20-26); ABG PH 7.472 (7.35-7.45); ABG PO2 75.4 MM HG (80-95); ABG TCO2 26.5 MMOL/L (23-27)
[2022-07-24 04:19] LABS: Blood Urea Nitrogen 45 MG/DL (7-18); Calcium 9.2 MG/DL (8.5-10.1); Carbon Dioxide 29 MMOL/L (21-32); Chloride 95 MMOL/L (98-107); Glucose 153 MG/DL (74-106); Osmolality,Calculated 278.5 MOS/KG (273-304); Phosphorous 3.7 MG/DL (2.5-4.9); Potassium 4.1 MMOL/L (3.5-5.1); Sodium 132 MMOL/L (136-145)
[2022-07-24 04:20] LABS: PT Patient Result 10.9 SECS (10.1-12.1)
[2022-07-24 05:16] LABS: Sedimentation Rate-Westergren 8 MM/HR (0-20)
[2022-07-24] MEDS: BUDESONIDE 0.5 MG/2 ML NEB RESP TX SCH ×2 (07:45→20:34)
[2022-07-24] MEDS: DORNASE ALFA 2.5 MG/2.5 ML VIAL RESP TX SCH ×2 (07:56→20:44)
[2022-07-24] MEDS: GABAPENTIN 400 MG CAPSULE PO SCH ×2 (08:01→20:55)
[2022-07-24] MEDS: POLYETHYLENE GLYCOL POWDER 17 GM PACK PO SCH (08:01)
[2022-07-24] MEDS: FUROSEMIDE 40 MG/4 ML VIAL IV SCH (08:01)
[2022-07-24] MEDS: ASPIRIN CHEW 81 MG TABLET PO SCH (08:01)
[2022-07-24] MEDS: CLOPIDOGREL 75 MG TABLET PO SCH (08:02)
[2022-07-24] MEDS: APIXABAN 5 MG TABLET PO SCH ×2 (08:02→20:55)
[2022-07-24] MEDS: FAMOTIDINE 8 MG/ML 50 ML/BOTTLE PO SCH ×2 (08:16→20:56)
[2022-07-24] MEDS: INSULIN GLARGINE 100 UNIT/ML SUBCUT SCH ×2 (08:16→20:55)
[2022-07-24] MEDS: MULTIVITAMIN LIQUID (CENTRUM) 60 ML BOTTLE PO SCH (08:16)
[2022-07-24] MEDS: fentaNYL 12 MCG/HR PATCH TRANSDERM SCH (08:16)
[2022-07-24] MEDS: SODIUM CHLORIDE 1 GM TABLET PO SCH ×2 (08:16→20:55)
[2022-07-24] MEDS: ARIPiprazole 5 MG TABLET PO SCH (09:28)
[2022-07-24] MEDS: cefTRIAXone 2,000 MG in SODIUM CHLORIDE 0.9% 100 ML IV SCH (16:05)
[2022-07-25] MEDS: ALBUTEROL/IPRATROPIUM 3 ML NEB RESP TX SCH ×3 (00:23→13:10)
[2022-07-25] MEDS: INSULIN LISPRO 100 UNIT/ML SUBCUT SCH ×5 (01:03→12:44)
[2022-07-25] MEDS: guaiFENesin 200 MG/10 ML UDCUP PO SCH ×3 (01:04→12:45)
[2022-07-25] MEDS: methylPREDNISolone SOD SUC 40 MG/1 ML VIAL IV SCH ×2 (01:50→13:42)
[2022-07-25] MEDS: DEXTROSE 10% 250 ML BAG IV PRN (03:50)
[2022-07-25 05:32] LABS: Basophils % 0.2 % (0.0-0.8); Eosinophils % 0.1 % (0.00-10.9); Hematocrit 41.8 VOL% (42.0-52.0); Hemoglobin 14.1 GM/DL (14.0-18.0); Immature Granulocytes % 1.8 %; Immature Granulocytes Absolute 0.32 #; Lymphocytes # 0.8 10*3/uL (1.4-4.0); Lymphocytes % 4.5 % (21.2-54.2); Mean Corpuscular HGB Conc 33.7 GM/DL (32-36); Mean Corpuscular Volume 92.3 FL (87-102); Mean Platelet Volume 11.2 FL (9.6-12.0); Monocytes # 0.9 10*3/uL (0.11-0.8); Monocytes % 5.3 % (1.7-12.7); Neutrophils % 88.1 % (38.7-73.9); Platelet Count 570 T/CUMM (130-400); Red Blood Count 4.53 MC/CUMM (3.8-5.5); Red Cell Distribution Width 13.4 % (9.3-17.3); White Blood Count 17.4 T/CUMM (4-12)
[2022-07-25 05:49] LABS: Blood Urea Nitrogen 37 MG/DL (7-18); Calcium 8.7 MG/DL (8.5-10.1); Carbon Dioxide 28 MMOL/L (21-32); Chloride 102 MMOL/L (98-107); Glucose 158 MG/DL (74-106); Osmolality,Calculated 286.7 MOS/KG (273-304); Potassium 3.6 MMOL/L (3.5-5.1); Sodium 138 MMOL/L (136-145)
[2022-07-25 05:59] LABS: Lymphocytes 2 % (20-55); Total Cells Counted 100
[2022-07-25 06:00] LABS: Microcytosis Slight; Platelet Estimate Increased
[2022-07-25] MEDS: DORNASE ALFA 2.5 MG/2.5 ML VIAL RESP TX SCH (07:34)
[2022-07-25] MEDS: BUDESONIDE 0.5 MG/2 ML NEB RESP TX SCH (07:34)
[2022-07-25] MEDS: POLYETHYLENE GLYCOL POWDER 17 GM PACK PO SCH (10:30)
[2022-07-25] MEDS: ARIPiprazole 5 MG TABLET PO SCH (10:31)
[2022-07-25] MEDS: GABAPENTIN 400 MG CAPSULE PO SCH (10:31)
[2022-07-25] MEDS: APIXABAN 5 MG TABLET PO SCH (10:31)
[2022-07-25] MEDS: VENLAFAXINE 37.5 MG TABLET PO SCH (10:31)
[2022-07-25] MEDS: ASPIRIN CHEW 81 MG TABLET PO SCH (10:31)
[2022-07-25] MEDS: CLOPIDOGREL 75 MG TABLET PO SCH (10:32)
[2022-07-25] MEDS: FAMOTIDINE 8 MG/ML 50 ML/BOTTLE PO SCH (10:32)
[2022-07-25] MEDS: MULTIVITAMIN LIQUID (CENTRUM) 60 ML BOTTLE PO SCH (10:33)
[2022-07-25] MEDS: FUROSEMIDE 40 MG/4 ML VIAL IV SCH (10:35)
[2022-07-25] MEDS: INSULIN GLARGINE 100 UNIT/ML SUBCUT SCH (10:35)
== END 2022-07-25 15:10 | DRG 870 ==
LOC: EDUNIT# → EDBD → N.ED 23:34 → N.CC 07-08 02:44 → SUATTDRO 07-08 02:44 → N.CC 07-08 08:35
PROVIDERS: ADMIT Internal Medicine; ATTEND Internal Medicine